=== PATIENT | male | born 1940 | race Caucasian/White ===

== ENCOUNTER 2024-09-26 13:16 | Emergency (ER) | payer MEDICARE, SELFPAY ==
[2024-09-26] VITALS (9 sets, daily range): BP systolic 134–161; BP diastolic 72–102; PULSE 18–88; RESP 14–18; TEMP 36.6–36.7; O2SAT 95–100; BMI 29.3
--- NOTE | 2024-09-26 13:19 | EKG_ITS ---
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1940 Requested By: ED Temporary Provider Order Number: [id number] Reading MD: ED Temporary Provider Measurements Intervals [place] Rate: 75 P: -20 NM: 282 QRS: -57 QRSD: 165 T: -4 QT: 477 QTc: 533 Interpretive Statements SINUS RHYTHM WITH FIRST DEGREE AV BLOCK WITH OCCASIONAL VENTRICULAR PREMATURE COMPLEXES RIGHT BUNDLE BRANCH BLOCK [120+ ms QRS DURATION, UPRIGHT V1, 40+ ms S IN I/aVL/V4/V5/V6] LEFT ANTERIOR FASCICULAR BLOCK [QRS AXIS <= -45, QR IN I, RS IN II] Compared to ECG 09/25/2022 08:53:58 Ventricular premature complex(es) now present /store/S0/[id number]/[id number].pdf
--- NOTE | 2024-09-26 13:42 | XR_ITS ---
Examination: Right elbow 2 views Technique: AP lateral right elbow 2 views Indications: Patient fell today with injury to the elbow, elbow pain Findings: Complete elbow dislocation, distal humeral condyles displaced anteriorly relative to the ulnar notch and radial head Small posterior bony olecranon spur No fracture noted Impression: Complete elbow dislocation
--- NOTE | 2024-09-26 13:42 | XR_ITS ---
Examination: CT brain head without contrast. 2-D sagittal coronal reconstructions Date and time of exam:September 26, 2024 1424 hrs. Indications: Ground-level fall today with injury to the head, head pain CTDI: vol (mGy):58.2 DLP: (mGycm):1107 Technique: Multiple CT axial sections of the brain have been obtained, 5 mm slice thickness. Contrast has not been administered. 2-D sagittal, coronal reconstructions have been obtained Low dose protocols were performed. One or more of the following dose reduction techniques were used; automated exposure control, adjustment of the mA and/or KV according to patient size, use of iterative reconstruction technique. Findings: No significant ventricular enlargement. 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 No mass effect or midline shift Basal cisterns are not remarkable. Fourth ventricle is midline. Cranial vault intact. Impression: Negative for acute hemorrhage, mass effect or midline shift
--- NOTE | 2024-09-26 13:42 | XR_ITS ---
Examination: CT cervical spine without contrast 2-D sagittal reconstructions 2-D coronal reconstructions 3-D reconstructions. Exam date and time:September 26, 2024 1424 hrs. Indications: Ground-level fall today with injury to the neck, neck pain CTDI:vol (mGy) 8.46 DLP: (mGycm) 195 Technique: Multiple 2 mm axial sections of the cervical spine have been obtained. The coronal and sagittal reconstructions have been obtained. 3-D reconstructions have been obtained. Low dose protocols were performed. One or more of the following dose reduction techniques were used; automated exposure control, adjustment of the mA and/or KV according to patient size, use of iterative reconstruction technique. Findings: Axial sections demonstrate intact base of the skull. C1 exhibit satisfactory relationship to the odontoid. No acute cervical vertebral body fracture seen. Alignment posterior spinous processes satisfactory. Advanced disc narrowing C3-C4 Cervical fusion C5-C7 with anatomic alignment Impression: No acute cervical fracture.
--- NOTE | 2024-09-26 13:42 | XR_ITS ---
Examination: AP chest single view Technique one AP portable semiupright chest single view Exam date and time: September 26, 2024 1355 hrs. Comparison April 02, 2023 Indications: Patient fell today with injury to the chest, chest pain Findings: Mild enlargement cardiac contour Median sternotomy wires No pneumothorax Clavicles ribs appear intact Impression: No pneumothorax pulmonary contusion or hemothorax
[2024-09-26] MEDS: KETOROLAC INJ 30 MG/ML VIAL 15 MG IVP (13:52)
[2024-09-26 15:10] LABS: Basophils % (Auto) 0 % (0-2.5); Eosinophils # (Auto) 0.2 Thou/mm3 (0.0-0.5); Eosinophils % (Auto) 1 % (0-10); Hematocrit 37.9 % (41.0-53.0); Hemoglobin 13.4 g/dL (13.5-16.0); Immature Granulocytes % (Auto) 0 % (0-0); Immature Granulocytes Auto 0.03 Thou/mm3 (0.00-0.00); Lymphocytes # (Auto) 1.1 Thou/mm3 (1.0-4.8); Lymphocytes % (Auto) 10 % (10-50); Mean Corpuscular HGB Conc 35.4 g/dl (31.0-37.0); Mean Corpuscular Hemoglobin 29.8 pg (25.0-35.0); Mean Corpuscular Volume 84 fL (80-100); Monocytes # (Auto) 0.8 Thou/mm3 (0.0-0.8); Monocytes % (Auto) 7 % (0-12); Neutrophils % (Auto) 81 % (37-80); Nucleated Red Blood Cell % 0 /100 WBC (0); Platelet Count 186 Thou/mm3 (140-440); RDW Standard Deviation 40.7 fL (35.1-43.9); White Blood Count 11.1 Thou/mm3 (3.8-10.6)
[2024-09-26] MEDS: ONDANSETRON INJ 2 MG/ML INJ 2 ML 4 MG IV (15:13)
[2024-09-26] MEDS: HYDROmorphone INJ 2 MG/ML VIAL 0.5 MG IVP (15:14)
[2024-09-26 15:32] LABS: Collection Type, Urine Catheter; Squamous Epithelial Cell,Urine 0 /hpf (0-5)
[2024-09-26 15:32] LABS: Alanine Aminotransferase 48 U/L (10-49); Albumin, Serum 4.3 gm/dL (3.4-4.8); Albumin/Globulin Ratio 1.8 (1.2-2.2); Alkaline Phosphatase 85 U/L (46-116); Anion Gap 6 (7-16); Aspartate Amino Transferase 63 U/L (0-34); BUN/Creatinine Ratio 19 Ratio (12-20); Bilirubin,Total 1.2 mg/dL (0.3-1.2); Blood Urea Nitrogen 17 mg/dL (9-23); Calcium 11.2 mg/dL (8.3-10.6); Calcium (Corrected) 11.2 mg/dL (8.5-10.1); Carbon Dioxide 26.9 mMol/L (20.0-31.0); Chloride 103 mMol/L (98-107); Creatinine (Component) 0.9 mg/dL (0.6-1.3); Globulin 2.4 gm/dL (2.3-3.5); Glucose 180 mg/dL (74-106); Osmolality,Calculated 278 (275-295); Sodium 136 mMol/L (136-145); Total Protein 6.7 gm/dL (5.7-8.2); eGFR > 60 See Note
[2024-09-26 15:34] LABS: Troponin I 0.049 ng/mL (0.0-0.045)
[2024-09-26 15:37] LABS: Bilirubin,Urine Negative (Negative); Blood,Urine 1+ (Negative); Clarity,Urine Clear (Clear/Hazy); Color,Urine Lt-Yellow (Lt Yel-Yel); Glucose, Urine Negative (Negative); Ketones,Urine Negative (Negative); Leukocyte Esterase,Urine Negative (Negative); Nitrite,Urine Negative (Negative); Protein,Urine Negative (Neg - Trace); RBC,Urine 1 /hpf (0-3); Urobilinogen,Urine Negative mg/dL (0.0-1.0); WBC,Urine < 1 /hpf (0-5)
--- NOTE | 2024-09-26 17:15 | PD.EDADULT ---
ED General RME/HPI General Chief complaint: Fall Stated complaint: POSS SYNCOPAL/FALL Time Seen by Provider: 09/26/24 13:26 Arrival date/time: 09/26/24 13:16 RME / HPI RME / HPI narrative: 83-year-old male with a history of hypertension who was found by his on the couch complaining of having fallen and injuring his right ear and his right elbow. He does not remember the events of the fall, notes that this is his baseline forgetfulness. He has no headache, no neck pain. He does note pain to his right elbow, but only when I move it . At rest he has no pain to the elbow. Related Data Home Medications ?Medication ?Instructions ?Recorded ?Confirmed pantoprazole 40 mg tablet,delayed 40 mg PO QDAY 09/07/18 09/13/23 release duloxetine 60 mg capsule,delayed 60 mg PO BID 09/25/22 09/13/23 release (Cymbalta) celecoxib 200 mg capsule 200 mg PO QDAY 02/11/23 09/13/23 hydrochlorothiazide 25 mg tablet 25 mg PO QDAY 02/11/23 09/13/23 aspirin 81 mg tablet,delayed 81 mg PO QDAY 09/16/23 09/16/23 release loratadine 10 mg tablet 10 mg PO QDAY 09/16/23 09/16/23 Previous Rx's ?Medication ?Instructions ?Recorded acetaminophen 325 mg tablet 650 mg (2 x 325 mg) PO QID PRN 09/26/24 (Tylenol) pain #30 tabs Allergies Allergy/AdvReac Type Severity Reaction Status Date / Time albuterol Allergy Severe Chest Pain Verified 01/21/24 15:13 morphine Allergy Severe Anaphylaxis Verified 01/21/24 15:13 Review of Systems Review of Systems Systems Reviewed: All systems reviewed, normal except as documented ED Exam Narrative Physical exam: GENERAL APPEARANCE: AxOx4, generally well-appearing, no acute distress. HEENT: NC, AT. MMM. EOMI, clear conjunctiva, oropharynx clear, superficial abrasion over the pinna of his right ear NECK: Supple without lymphadenopathy. No stiffness or restricted ROM. HEART: Normal rate and regular rhythm, normal S1/S1, no m/r/g LUNGS: CTAB, moving air well. No crackles or wheezes are heard. ABDOMEN: Soft, nontender, nondistended with good bowel sounds heard. BACK: No midline C/T/L spine pain or deformity, No CVAT, no obvious deformity. EXTREMITIES: Without cyanosis, clubbing or edema. MUSCULOSKELETAL: Right elbow is swollen, deformed, with a prominent olecranon consistent with a posterior dislocation, no crepitus, held in extension with limited flexion and limited supination, no chest tenderness NEUROLOGICAL: Grossly nonfocal. Alert and oriented, moving all 4 extremities. CN not formally tested but appear grossly intact. Observed to ambulate with normal gait. Skin: Warm and dry without any rash. Course Quality Measures none Orders Category Date Time Status Consent [Obtain Written Consent For:] .NOW Care 09/26/24 15:49 Completed EKG (ED ONLY) *Do not use* NOW Care 09/26/24 13:19 Completed NPO NOW Care 09/26/24 14:39 Completed sling [Splint / Immobilizer] STAT Care 09/26/24 18:13 Completed Diet NPO (NOW) Diet 09/26/24 14:[address] cervical spine wo con Stat Exams 09/26/24 13:[address] head/brain wo con Stat Exams 09/26/24 13:42 Completed EKG (ED Only) Stat Exams 09/26/24 13:19 Draft XR chest 1V Stat Exams 09/26/24 13:42 Completed XR elbow comp RT min 3V Stat Exams 09/26/24 13:42 Completed XR elbow comp RT min 3V Stat Exams 09/26/24 17:38 Completed CBC Stat Lab 09/26/24 14:59 Completed CMP [Comprehensive Metabolic Panel] Stat Lab 09/26/24 14:59 Completed Troponin I Stat Lab 09/26/24 14:59 Completed Troponin I Stat Lab 09/26/24 17:06 Completed Urinalysis Stat Lab 09/26/24 15:12 Completed HYDROmorphone INJ [Dilaudid Inj] Med 09/26/24 14:54 Discontinued 0.5 mg IVP X1 ONE Ketamine Inj Med 09/26/24 16:30 Discontinued 50 mg IVP X1 ONE Ketorolac Inj [Toradol Inj] Med 09/26/24 13:43 Discontinued 15 mg IVP X1 ONE Ondansetron Inj [Zofran Inj] Med 09/26/24 14:54 Discontinued 4 mg IV X1 ONE Propofol Inj [Diprivan Inj] Med 09/26/24 16:30 Discontinued 100 mg IV X1 ONE Tet,Diphth,Pertuss(Acell)-Tdap [Boostrix Vacc] Med 09/26/24 18:33 Discontinued 0.5 ml IMI .ONCE ONE Vital Signs Vital signs: Vital Signs Temperature 98.0 F 09/26/24 13:32 Pulse Rate 77 09/26/24 13:32 Respiratory Rate 16 09/26/24 13:32 Blood Pressure 137/80 H 09/26/24 13:32 Pulse Oximetry (%) 95 09/26/24 13:32 Oxygen Delivery Method Room Air 09/26/24 13:32 Procedures -ED Orthopedic Joint Reduction Joint #1: Time Out Performed: Yes Side: Right Joint Reduction Location: elbow Analgesia: procedural sedation Technique used: direct manipulation (flexion-supination) Post-reduction neuro exam: intact Post-reduction vascular: intact Post Reduction X-Ray Results: reduced Splint Applied: Yes Patient Tolerated Procedure: well MDM Patient data External records reviewed:: [facility] previous records Clinical information provided by:: patient Social determinants that could affect healthcare access:: none Patient has the following chronic illnesses:: none How is presenting disease/condition affected by chronic disease/condition?: no chronic disease Evaluation data The following diagnostics were reviewed and interpreted by me:: lab results and radiology exam(s) Lab and/or radiology exams considered but not ordered:: As per narrative Interpretation Summary: As per narrative Medications Medications considered but not ordered:: None Medication administrations:: Medication Administration History Discontinued Medications Diphtheria/Tetanus/Acell Pertussis (Diphth,Pertuss(Acell),Tet Vac 0.5 Ml Vial) 0.5 ml IMi .ONCE ONE Stop: 09/26/24 18:34 Last Admin: 09/26/24 18:54 Dose: 0.5 ml Documented By: DONATO Hydromorphone HCl (Hydromorphone Inj 2 Mg/Ml Vial) 0.5 mg IVP X1 ONE Stop: 09/26/24 14:55 Last Admin: 09/26/24 15:14 Dose: 0.5 mg Documented By: DO Ketamine HCl (Ketamine 50 Mg/Ml Vial 10 Ml) 50 mg IVP X1 ONE Stop: 09/26/24 16:31 Last Admin: 09/26/24 17:29 Dose: 50 mg Documented By: DONATO Comments: MED PUSHED BY DR. DEXTER Ketorolac Tromethamine (Ketorolac Inj 30 Mg/Ml Vial) 15 mg IVP X1 ONE Stop: 09/26/24 13:44 Last Admin: 09/26/24 13:52 Dose: 15 mg Documented By: DB Ondansetron HCl (Ondansetron Inj 2 Mg/Ml Inj 2 Ml) 4 mg IV X1 ONE; Protocol Stop: 09/26/24 14:55 Last Admin: 09/26/24 15:13 Dose: 4 mg Documented By: DO Propofol (Propofol Inj 10 Mg/Ml Vial 20 Ml) 100 mg IV X1 ONE Stop: 09/26/24 16:31 Last Admin: 09/26/24 17:41 Dose: 40 mg Documented By: DONATO Comments: MED PUSH BY DR. DEXTER Above Consultations Consultation(s) initiated? (list below): No Diagnosis Differential Diagnosis ED Complaint MDM: Elbow fracture, elbow dislocation, syncope, anemia, dysrhythmia Most likely diagnosis given after review of the tests above:: Elbow dislocation, elbow fracture Admission Indicated Admission indicated?: not indicated Explain why admission is indicated or not indicated:: As per Admission Request Was there a request for admission?: No Disposition Plan Disposition Plan: Discharge Discharge Attestation Discharge Attestation: The patient and all family members were given an opportunity to ask questions and understood the discharge instructions. Discharge instructions specifically effects, indications for sooner follow up or return to the emergency department, and the expected course of current diagnosis. Patient condition: Stable Medical Decision Making MDM Narrative MDM Narrative: Mr. Boss is a rather strong stoic gentleman who was found down on the ground of which feels he was due to a mechanical fall walking down the stairs. However the patient does not remember events only remembers getting to the sofa exam notes a superficial skin flap to his right ear however his right elbow is deformed with a posterior protrusion of his olecranon is consistent with a elbow dislocation. This was confirmed by initial x-ray. Elbow was reduced via direct manipulation in extreme flexion/supination using procedural sedation without complication. While under sedation still, the elbow appears to be relatively stable, suspicious for significant ligamentous injury. Post procedure x-ray shows adequate reduction however there appears to be likely avulsion fractures that may be related to a ligamentous injury. As result a posterior splint in flexion was applied. He has previous surgeries to his right shoulder and he will. follow-up with them prefers to follow-up with His personal orthopedist. As events were unclear and unwitnessed towards his fall, laboratory screening was sent in case there was a presyncopal or syncopal component around this.'s include basic laboratory tests and troponin which returned within normal limits. I do feel this is probably more of an unwitnessed mechanical fall. Differential Diagnosis Differential Diagnosis: Elbow fracture, elbow dislocation, syncope, anemia, dysrhythmia Lab Data 09/26/24 14:59 09/26/24 14:59 Labs: Lab Results 09/26/24 09/26/24 09/26/24 Range/Units 14:59 15:12 17:06 WBC 11.1 H (3.8-10.6) Thou/mm3 RBC 4.50 (4.50-5.90) Miln/mm3 Hgb 13.4 L (13.5-16.0) g/dL Hct 37.9 L (41.0-53.0) % MCV 84 (80-100) fL MCH 29.8 (25.0-35.0) pg MCHC 35.4 (31.0-37.0) g/dl RDW Std Deviation 40.7 (35.1-43.9) fL Plt Count 186 (140-440) Thou/mm3 Neut % (Auto) 81 H (37-80) % Lymph % (Auto) 10 (10-50) % [place] % (Auto) 7 (0-12) % Eos % (Auto) 1 (0-10) % Baso % (Auto) 0 (0-2.5) % Neut # (Auto) 9.0 H (1.8-7.7) Thou/mm3 Lymph # (Auto) 1.1 (1.0-4.8) Thou/mm3 [place] # (Auto) 0.8 (0.0-0.8) Thou/mm3 Eos # (Auto) 0.2 (0.0-0.5) Thou/mm3 Baso # (Auto) 0.0 (0.0-0.2) Thou/mm3 Immature Gran # (Auto) 0.03 H (0.00-0.00) Thou/mm3 Absolute Nucleated RBC 0.00 (0.00-0.00) Thou/mm3 Immature Gran % 0 (0-0) % Nucleated RBC % 0 (0) /100 WBC Sodium 136 (136-145) mMol/L Potassium 4.0 (3.4-5.1) mMol/L Chloride 103 (98-107) mMol/L Carbon Dioxide 26.9 (20.0-31.0) mMol/L Anion Gap 6 L (7-16) BUN 17 (9-23) mg/dL Creatinine 0.9 (0.6-1.3) mg/dL Estim Creat Clear Calc 85.0 (>60) mL/min eGFR > 60 (60 - ) See Note BUN/Creatinine Ratio 19 (12-20) Ratio Glucose 180 H (74-106) mg/dL Calculated Osmolality 278 (275-295) Calcium 11.2 H (8.3-10.6) mg/dL Corrected Calcium 11.2 H (8.5-10.1) mg/dL Total Bilirubin 1.2 (0.3-1.2) mg/dL AST 63 H (0-34) U/L ALT 48 (10-49) U/L Alkaline Phosphatase 85 (46-116) U/L Troponin I 0.049 H* 0.051 H* (0.0-0.045) ng/mL Total Protein 6.7 (5.7-8.2) gm/dL Albumin 4.3 (3.4-4.8) gm/dL Globulin 2.4 (2.3-3.5) gm/dL Albumin/Globulin Ratio 1.8 (1.2-2.2) Ur Collection Type Catheter Urine Color Lt-Yellow (Lt Yel-Yel) Urine Clarity Clear (Clear/Hazy) Urine pH 6.0 (5.0-7.0) Ur Specific [place] 1.010 (1.001-1.035) Urine Protein Negative (Neg - Trace) Urine Glucose (UA) Negative (Negative) Urine Ketones Negative (Negative) Urine Blood 1+ A (Negative) Urine Nitrite Negative (Negative) Urine Bilirubin Negative (Negative) Urine Urobilinogen (Auto) Negative (0.0-1.0) mg/dL Ur Leukocyte Esterase Negative (Negative) Urine RBC 1 (0-3) /hpf Urine WBC < 1 (0-5) /hpf Ur Squamous Epith Cells 0 (0-5) /hpf Urine Bacteria None (None) Discharge Plan Plan Patient Disposition: HOME (Self Care) Prescriptions/Referrals Prescriptions/Med Rec: New acetaminophen [Tylenol] 325 mg tablet 650 mg PO QID PRN (Reason: pain) Qty: 30 0RF No Action pantoprazole 40 mg Tablet,Delayed Release (Dr/Ec) 40 mg PO QDAY duloxetine [Cymbalta] 60 mg Capsule,Delayed Release(Dr/Ec) 60 mg PO BID celecoxib 200 mg Capsule 200 mg PO QDAY hydrochlorothiazide 25 mg Tablet 25 mg PO QDAY loratadine 10 mg tablet 10 mg PO QDAY Patient Comments: TAKE 1 TABLET BY MOUTH ONCE A DAY FOR ALLERGIES aspirin 81 mg Tablet,Delayed Release (Dr/Ec) 81 mg PO QDAY Referrals: Yoandy Mckay MD [Primary Care Provider] - In 1 week Problem List Clinical Impression: Fall from ground level, Dislocation closed, elbow, Laceration of ear Patient/Caregiver Discharge Instructions Education Materials: ED Elbow Dislocation, ED Fall with Uncertain Cause Additional Instructions: Follow-up with your orthopedist in 1 week for recheck for your elbow dislocation and possible fracture/ligament tear. Follow-up with your primary care doctor in 2 to 3 days for recheck. You can return to the emergency department sooner symptoms worsen or if you notice any new, concerning issues. Print Language: Peruvian Stand Alone Forms: [facility] Award Info., Patient Portal Info Letter
[2024-09-26] MEDS: KETAMINE 50 MG/ML VIAL 10 ML IVP (17:29)
--- NOTE | 2024-09-26 17:38 | XR_ITS ---
Examination: Right elbow 2 views Technique: AP lateral right elbow 2 views Exam date and time: September 26, 2024 7054 hours Indications: Elbow dislocation today post reduction film Findings: Satisfactory reduction of elbow dislocation Bone fragment on the lateral view projects over the coronoid process of the ulna Impression: Recommend CT scan elbow follow-up to confirm chip fracture, likely off the coronoid process of the ulna
[2024-09-26] MEDS: PROPOFOL INJ 10 MG/ML VIAL 20 ML 100 MG IV (17:41)
[2024-09-26 18:09] LABS: Troponin I 0.051 ng/mL (0.0-0.045)
[2024-09-26] MEDS: DIPHTH,PERTUSS(ACELL),TET VAC 0.5 ML VIAL IMi (18:54)
== END 2024-09-26 20:35 | disposition home or self-care (01) ==
PROVIDERS: Emergency Provider Emergency Medicine; PCP Family Medicine
DX: S53.104A Unspecified dislocation of right ulnohumeral joint, initial encounter (principal); I10 Essential (primary) hypertension; W18.30XA Fall on same level, unspecified, initial encounter; S01.311A Laceration without foreign body of right ear, initial encounter
CPT/HCPCS: 24605; 36415; 70450; 71045; 72125; 73080; 80053; 81001; 84484; 85025; 90471; 90715; 96374; 96375; 99285; J1885; J2405; J2704; J3490

== ENCOUNTER 2025-01-08 10:51 | Observation (INO) | payer MEDICARE, SELFPAY ==
[2025-01-08] VITALS (9 sets, daily range): BP systolic 82–143; BP diastolic 61–83; PULSE 81–172; RESP 16–20; TEMP 36.4–36.6; O2SAT 100; BMI 28.5
--- NOTE | 2025-01-08 10:53 | EKG_ITS ---
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1940 Requested By: Juanjose Ortiz Order Number: [id number] Reading MD: Juanjose Ortiz Measurements Intervals [place] Rate: 166 P: [place]: QRS: -52 QRSD: 150 T: 45 QT: 332 QTc: 553 Interpretive Statements UNCERTAIN REGULAR RHYTHM LEFT AXIS DEVIATION [QRS AXIS < -30] RIGHT BUNDLE BRANCH BLOCK [120+ ms QRS DURATION, UPRIGHT V1, 40+ ms S IN I/aVL/V4/V5/V6] ST DEPRESSION, CONSIDER SUBENDOCARDIAL INJURY [0.1+ mV ST DEPRESSION] CRITICAL TEST RESULT Compared to ECG 09/26/2024 13:29:54 Left-axis deviation now present ST (T wave) deviation now present Sinus rhythm no longer present Ventricular premature complex(es) no longer present First degree AV block no longer present Left anterior fascicular block no longer present /store/S0/[id number]
--- NOTE | 2025-01-08 10:53 | EDNOTE_ITS ---
<Statement entered by Lindy Pozo MD - 01/21/25 07:26> I, Lindy Pozo MD, have reviewed the history, exam, and assessment of the patient. I have evaluated the patient independently and agree with the plan of care documented by [ ]. All diagnostic studies were reviewed and discussed. I confirm the diagnosis as documented by the Resident. I was present during the Medical Decision Making for this patient. The patient's plan of care was created between myself and the Resident and consistent with our discussion of the patient's case. ED General RME/HPI General Chief complaint: Arrhythmia/Palpitations Stated complaint: SENT BY BILINGUAL MANAGER DUE TO RAPID HR Time Seen by Provider: 01/08/25 11:07 Arrival date/time: 01/08/25 10:51 RME / HPI RME / HPI narrative: This patient is a 84-year-old male with past medical history of diabetes, duodenal ulcer, hyperlipidemia, iron deficiency anemia, GERD, hypertension, GI bleed in October 2024, PE and DVT was on Eliquis, presented from information strategist, Dr. Bryant's office with chief complaint of racing of heart associated with shortness of breath. EKG was performed in information strategist office which showed SVT heart rate 160s with RBBB. Patient denied any chest pain. He was feeling lightheaded associated with feeling of nausea. He was mildly hypoxic and was placed on oxygen 2 L NC. In the ED, patient had another EKG which showed Supraventricular tachycardia ventricular rate 156 with QTc 553. RBBB. Left axis deviation. After dose of adenosine 6 mg x 1, patient's repeat EKG showed sinus rhythm with first-degree AV block with ventricular rate 89 QTc 483 With RBBB. Patient converted to sinus rhythm after dose of adenosine and felt funny in his chest. Vitals for stable during adenosine administration. Vitals showed blood pressure 114/81, pulse was 90 and afebrile. He was saturating well on room air. Denied any fever chills, dysuria's or any other complaint. Additionally, patient was given a fluid bolus of 1 L x 1. PMH: As above PSH: Shoulder surgery ,back surgery, cataract surgery aortic valve replacement, SH: Denies smoking, drinking alcohol. No history of illicit drug use Allergies: Albuterol and morphine causes anaphylaxis Home medications: Tylenol, aspirin, Cinacalcet, docusate sodium, Dulcolax, duloxetine 60 mg, Eliquis 2.5 which was taken off, hydrochlorothiazide 25 mg, milk of magnesia, nitroglycerin, Zofran,Protonix Diagnosis included community-acquired pneumonia, SVT, electrolyte disturbances, leukocytosis, lactic acidosis, elevated troponin I 12: 38 CBC showed leukocytosis WBC 13.8, hemoglobin 11.5, platelet count 382. Chemistry panel showed sodium 136, potassium 3.0, bicarb 21.2. Kidney function showed BUN 21 and creatinine 1.0. Blood glucose 206. Lactic acid 3.6. Magnesium 1.5. Troponin I 0.071. Lactic acid of 3.6. Patient was given KCl 40 mEq x 1 and 2 g magnesium IV x 1. We repeated the EKG to evaluate heart rhythm and will likely call information strategist afterwards for further updates. Pv Design Engineer recommended that he wants to do flecainide 100 mg x 1 and then 100 mg twice daily upon discharge. 14:32 patient was found to have significant leukocytosis therefore chest x-ray and urinalysis was ordered to evaluate for infection source. Chest x-ray suspicious for right lung pneumonia. Currently waiting on urinalysis. Dr Bryant recommended to admit the patient due to CAP. 15:14 patient was found to have bibasilar pneumonia on chest x-ray. Patient was given dose of Rocephin and azithromycin x 1.Discussed case with hospitalist team regarding admission. Discussed patient's ED course, exam findings, labs and radiology results. Hospitalist team agreed to accept the patient for admission. EKG Findings 11:01 initial EKG showed ventricular rate 166 with left axis deviation QTc 553 with RBBB 11:35 post adenosine. EKG rhythm showed sinus rhythm heart rate 89 with first- degree AV block QTc 483 with RBBB. 13: 29 EKG showed sinus rhythm with first-degree AV block heart rate 90. With RBBB and left axis deviation. QTc 509. complaint: Racing of heart and SOB Onset (ago): hour(s) (2) Location: chest Associated symptoms: shortness of breath Related Data Home Medications ?Medication ?Instructions ?Recorded ?Confirmed pantoprazole 40 mg tablet,delayed 40 mg PO QDAY 09/13/23 release duloxetine 60 mg capsule,delayed 60 mg PO BID 09/25/22 09/13/23 release (Cymbalta) celecoxib 200 mg capsule 200 mg PO QDAY 02/11/2308/26 hydrochlorothiazide 25 mg tablet 25 mg PO QDAY 3 09/13/23 aspirin 81 mg tablet,delayed 81 mg PO QDAY 09/16/23 release loratadine 10 mg tablet 10 mg PO QDAY 09/16/2309/16 Previous Rx's ?Medication ?Instructions ?Recorded acetaminophen 325 mg tablet 650 mg (2 x 325 mg) PO QID PRN 09/26/24 (Tylenol) pain #30 tabs Allergies Allergy/AdvReac Type Severity Reaction Status Date / Time albuterol Allergy Severe Chest Pain Verified 01/21/24 15:13 morphine Allergy Severe Anaphylaxis Verified 01/21/24 15:13 Review of Systems Review of Systems Systems Reviewed: All systems reviewed, normal except as documented Past Medical History Past Medical History NEUROLOGIC: Negative Neurological Disorders or Seizures CARDIAC: Positive Cardiac Disorders, Atrial Fibrillation, Heart Murmur and Valvular Heart Disease; Negative Congestive Heart Failure RESPIRATORY: Positive Chronic Obstructive Pulmonary Disease (COPD); Negative Asthma GASTROINTESTINAL: Positive Gastrointestinal Disorders and Gastroesophageal Reflux Disease GENITOURINARY: Positive Genitourinary Disorders and Benign Prostatic Hyperplasia; Negative Renal Disease REPRODUCTIVE: Positive Testicular Cancer MUSCULOSKELETAL: Positive Musculoskeletal Disorders, Arthritis, Osteoporosis, Carpal Tunnel Syndrome and Fractures ENT: Positive Cataracts ENDOCRINE: Negative Endocrine Disorders, Diabetes Mellitus Type 1 or Diabetes Mellitus Type 2 HEMATOLOGIC: Negative Blood Disorders or Sickle Cell Disease PSYCHO/SOCIAL: Positive Depression OTHER HISTORY: Positive Hospitalization, Autoimmune Disease, Falls (Uses cane and falls frequently), Chemotherapy, Chicken Pox, Measles, Cancer and Testicular Cancer; Negative Blood Transfusions, Blood Transfusion Reaction, Anesthesia Reactions or MRSA Family History FAMILY HISTORY: Negative Family Psychiatric Problems, Family Respiratory Disorders, Family Cardiac Disorders, Family Gastrointestinal Problems, Family Cancer, Family Surgery or Family Anesthesia Reaction Surgical History SURGICAL: Positive Open Heart Surgery, Valve Replacement (Aortic), Coronary Stent, Angiogram, Ear Surgery, Eye Surgery, Abdominal Surgery and Joint Replacement; Negative Cardiac Surgery, Endocrine Surgery, Nephrectomy, Neurologic Surgery or Vasectomy Social History SMOKING STATUS: Never smoker ED Exam Narrative Physical exam: GENERAL APPEARANCE: Elderly male AOx 3 pale in mild distress due to racing of heart. Satting well on 2 L NC. HEENT: NC, AT. MMM. EOMI, clear conjunctiva, oropharynx clear. NECK: Supple without lymphadenopathy. No stiffness or restricted ROM. HEART: Sinus tach with regular rhythm, normal S1/S2, no m/r/g LUNGS: CTAB, moving air well. No crackles or wheezes are heard. ABDOMEN: Soft, nontender, nondistended with good bowel sounds heard. BACK: No CVAT, no obvious deformity. EXTREMITIES: Without cyanosis, clubbing or edema. NEUROLOGICAL: Grossly nonfocal. Alert and oriented, moving all 4 extremities. CN not formally tested but appear grossly intact. Skin: Warm and dry without any rash. Psych: Appropriate mood and affect Course Course Course Narrative: This patient is a 84-year-old male with past medical history of diabetes, duodenal ulcer, hyperlipidemia, iron deficiency anemia, GERD, hypertension, GI bleed in October 2024, cardiac arrest due to PE and DVT was on Eliquis, presented from information strategist, Dr. Bryant's office with chief complaint of racing of heart associated with shortness of breath. EKG was performed in information strategist office which showed SVT heart rate 160s with RBBB. Patient denied any chest pain. He was feeling lightheaded associated with feeling of nausea. He was mildly hypoxic and was placed on oxygen 2 L NC. In the ED, patient had another EKG which showed Supraventricular tachycardia ventricular rate 156 with QTc 553. RBBB. Left axis deviation. After dose of adenosine 6 mg x 1, patient's repeat EKG showed sinus rhythm with first-degree AV block with ventricular rate 89 QTc 483 With RBBB. Patient converted to sinus rhythm after dose of adenosine and felt funny in his chest. Vitals for stable during adenosine administration. Vitals showed blood pressure 114/81, pulse was 90 and afebrile. He was saturating well on room air. Denied any fever chills, dysuria's or any other complaint. Additionally, patient was given a fluid bolus of 1 L x 1. 12: 38 CBC showed leukocytosis WBC 13.8, hemoglobin 11.5, platelet count 382. Chemistry panel showed sodium 136, potassium 3.0, bicarb 21.2. Kidney function showed BUN 21 and creatinine 1.0. Blood glucose 206. Lactic acid 3.6. Magnesium 1.5. Troponin I 0.071. Lactic acid of 3.6. Patient was given KCl 40 mEq x 1 and 2 g magnesium IV x 1. We repeated the EKG to evaluate heart rhythm and will likely call information strategist afterwards for further updates. Pv Design Engineer recommended that he wants to do flecainide 100 mg x 1 and then 100 mg twice daily upon discharge. 14:32 patient was found to have significant leukocytosis therefore chest x-ray and urinalysis was ordered to evaluate for infection source. Chest x-ray suspicious for right lung pneumonia. Currently waiting on urinalysis. Dr Bryant recommended to admit the patient due to CAP. 15:14 patient was found to have bibasilar pneumonia on chest x-ray. Patient was given dose of Rocephin and azithromycin x 1.Discussed case with hospitalist team regarding admission. Discussed patient's ED course, exam findings, labs and radiology results. Hospitalist team agreed to accept the patient for admission. Quality Measures none Orders Category Date Time Status Bedside COVID-19 Antigen Test NOW Care 01/08/25 14:59 Active Bedside Influenza A&B Antigen Test NOW Care 01/08/25 14:59 Active COVID-19 Screening Questionnaire NOW Care 01/08/25 15:09 Active National Recruiter Q4H START 00 Care 01/08/25 11:11 Active Decision to Admit X1 Care 01/08/25 15:09 Active EKG (ED ONLY) *Do not use* NOW Care 01/08/25 10:53 Completed EKG (ED ONLY) *Do not use* NOW Care 01/08/25 11:35 Completed EKG (ED ONLY) *Do not use* NOW Care 01/08/25 12:42 Completed Glucose [Bedside Blood Glucose] NOW Care 01/08/25 10:53 Active Insert IV NOW Care 01/08/25 11:11 Active Miscellaneous Nursing Order NOW Care 01/08/25 14:59 Active Consult to Cardiology Stat Cons 01/08/25 13:05 Ordered CXRP [XR chest 1V portable] Stat Exams 01/08/25 13:55 Completed EKG (ED Only) Stat Exams 01/08/25 10:53 Draft EKG (ED Only) Stat Exams 01/08/25 11:35 Draft EKG (ED Only) Stat Exams 01/08/25 12:42 Draft Blood Culture (Lab) Stat Lab 01/08/25 14:57 Ordered CBC Stat Lab 01/08/25 11:40 Completed CMP [Comprehensive Metabolic Panel] Stat Lab 01/08/25 11:40 Completed Lactate (Lactic Acid) Stat Lab 01/08/25 11:40 Completed Lactic Acid, 3 HR Stat Lab 01/08/25 14:44 Ordered MRSA Nasal Screen Stat Lab 01/08/25 14:59 Ordered Mag [Magnesium] Stat Lab 01/08/25 11:40 Completed Phosphorous Stat Lab 01/08/25 11:40 Completed Troponin I Stat Lab 01/08/25 11:40 Completed Urinalysis Stat Lab 01/08/25 11:43 Ordered Urine Culture Stat Lab 01/08/25 14:57 Ordered Adenosine 6mg Inj [Adenocard Inj] Med 01/08/25 11:00 Discontinued 12 mg IVP X1 ONE Adenosine 6mg Inj [Adenocard Inj] Med 01/08/25 11:00 Discontinued 6 mg IVP X1 ONE Azithromycin Inj [Zithromax Inj] 500 mg Med 01/08/25 14:57 Active Sodium Chloride 0.9% 250 ml [Ns] 250 ml IV X1 KCL 10% Liq UDC 15 ML Med 01/08/25 12:33 Discontinued 40 meq GT X1 ONE KCL 10% Liq UDC 15 ML Med 01/08/25 12:44 Discontinued 40 meq PO X1 ONE Magnesium Sulfate 2 GM Ivpb [Magnesium Sulfate Ivpb] Med 01/08/25 12:33 Discontinued 2 gm in 50 ml IV X1 Sodium Chloride 0.9% 1000 ml [Ns] 1,000 ml Med 01/08/25 11:03 Discontinued IV 999 mls/hr cefTRIAXone/D5w 1gm IV premix [Rocephin/D5w 1gm IV Med 01/08/25 14:57 Active premix] 1 gm in 50 ml IV X1 Vital Signs Vital signs: Vital Signs Pulse Rate 172 H 01/08/25 11:12 Discharge Plan Plan Patient Disposition: Admit Acute Care w/in Hospital Prescriptions/Referrals Prescriptions/Med Rec: No Action pantoprazole 40 mg Tablet,Delayed Release (Dr/Ec) 40 mg PO QDAY duloxetine [Cymbalta] 60 mg Capsule,Delayed Release(Dr/Ec) 60 mg PO BID celecoxib 200 mg Capsule 200 mg PO QDAY hydrochlorothiazide 25 mg Tablet 25 mg PO QDAY loratadine 10 mg tablet 10 mg PO QDAY Patient Comments: TAKE 1 TABLET BY MOUTH ONCE A DAY FOR ALLERGIES aspirin 81 mg Tablet,Delayed Release (Dr/Ec) 81 mg PO QDAY acetaminophen [Tylenol] 325 mg tablet 650 mg PO QID PRN (Reason: pain) Qty: 30 0RF Referrals: Yoandy Mckay MD [Primary Care Provider] - In 1 week Problem List Clinical Impression: SVT (supraventricular tachycardia), Community acquired pneumonia Patient/Caregiver Discharge Instructions Print Language: Belarusian Stand Alone Forms: [employer] Award Info., Patient Portal Info Letter MDM Narrative MDM hospital course (for use when minimal MDM required): This patient is a 84-year-old male with past medical history of diabetes, duodenal ulcer, hyperlipidemia, iron deficiency anemia, GERD, hypertension, GI bleed in October 2024, cardiac arrest due to PE and DVT was on Eliquis, presented from information strategist, Dr. Bryant's office with chief complaint of racing of heart associated with shortness of breath. EKG was performed in information strategist office which showed SVT heart rate 160s with RBBB. Patient denied any chest pain. He was feeling lightheaded associated with feeling of nausea. He was mildly hypoxic and was placed on oxygen 2 L NC. In the ED, patient had another EKG which showed Supraventricular tachycardia ventricular rate 156 with QTc 553. RBBB. Left axis deviation. After dose of adenosine 6 mg x 1, patient's repeat EKG showed sinus rhythm with first-degree AV block with ventricular rate 89 QTc 483 With RBBB. Patient converted to sinus rhythm after dose of adenosine and felt funny in his chest. Vitals for stable during adenosine administration. Vitals showed blood pressure 114/81, pulse was 90 and afebrile. He was saturating well on room air. Denied any fever chills, dysuria's or any other complaint. Additionally, patient was given a fluid bolus of 1 L x 1. 12: 38 CBC showed leukocytosis WBC 13.8, hemoglobin 11.5, platelet count 382. Chemistry panel showed sodium 136, potassium 3.0, bicarb 21.2. Kidney function showed BUN 21 and creatinine 1.0. Blood glucose 206. Lactic acid 3.6. Magnesium 1.5. Troponin I 0.071. Lactic acid of 3.6. Patient was given KCl 40 mEq x 1 and 2 g magnesium IV x 1. We repeated the EKG to evaluate heart rhythm and will likely call information strategist afterwards for further updates. Pv Design Engineer recommended that he wants to do flecainide 100 mg x 1 and then 100 mg twice daily upon discharge. 14:32 patient was found to have significant leukocytosis therefore chest x-ray and urinalysis was ordered to evaluate for infection source. Chest x-ray suspicious for right lung pneumonia. Currently waiting on urinalysis. Dr Bryant recommended to admit the patient due to CAP. 15:14 patient was found to have bibasilar pneumonia on chest x-ray. Patient was given dose of Rocephin and azithromycin x 1.Discussed case with hospitalist team regarding admission. Discussed patient's ED course, exam findings, labs and radiology results. Hospitalist team agreed to accept the patient for admission. EKG Interpretation EKG #1: EKG Interpretation: 11:01 initial EKG showed ventricular rate 166 with left axis deviation QTc 553 with RBBB EKG #2: EKG Interpretation: 11:35 post adenosine. EKG rhythm showed sinus rhythm heart rate 89 with first- degree AV block QTc 483 with RBBB. EKG #3: EKG Interpretation: 13: 29 EKG showed sinus rhythm with first-degree AV block heart rate 90. With RBBB and left axis deviation. QTc 509. Medication Administration(s) Medication Administration History Ceftriaxone Sodium/Dextrose (Rocephin/D5w 1gm Iv Premix) 1 gm in 50 mls @ 100 mls/hr IV X1 ONE Stop: 01/08/25 15:26 Azithromycin 500 mg/ Sodium (Chloride) 250 mls @ 250 mls/hr IV X1 ONE Stop: 01/08/25 15:56 Discontinued Medications Adenosine (Adenosine Inj 3 Mg/Ml Vial) 6 mg IVP X1 ONE Stop: 01/08/25 11:01 Last Admin: 01/08/25 11:32 Dose: 6 mg Documented By: DONATO Adenosine (Adenosine Inj 3 Mg/Ml Vial) 12 mg IVP X1 ONE Stop: 01/08/25 11:01 Last Admin: 01/08/25 11:56 Dose: Not Given Documented By: DONATO Non-Admin Reason: Change of Condition Sodium Chloride (Ns) 1,000 mls @ 999 mls/hr IV .Q1H1M ONE Stop: 01/08/25 12:03 Last Infusion: 01/08/25 12:45 Dose: Infused Documented By: Admin: 01/08/25 11:20 Dose: 999 mls/hr Documented By: DONATO Magnesium Sulfate (Magnesium Sulfate Ivpb) 2 gm in 50 mls @ 25 mls/hr IV X1 ONE Stop: 01/08/25 14:32 Last Admin: 01/08/25 13:06 Dose: 25 mls/hr Documented By: DONATO Potassium Chloride (Potassium Chloride 10% 20 Meq/15 Ml Udc) 40 meq GT X1 ONE Stop: 01/08/25 12:34 Last Admin: 01/08/25 12:45 Dose: Not Given Documented By: DONATO Non-Admin Reason: Cancelled by Provider Potassium Chloride (Potassium Chloride 10% 20 Meq/15 Ml Udc) 40 meq PO X1 ONE Stop: 01/08/25 12:45 Last Admin: 01/08/25 12:54 Dose: 40 meq Documented By: DONATO Diagnosis Differential Diagnosis ED Complaint MDM: CAP, SVT
[2025-01-08] MEDS: SODIUM CHLORIDE 0.9% 1000 ML 1,000 ML 999 ML IV (11:20)
[2025-01-08] MEDS: ADENOSINE INJ 3 MG/ML VIAL 6 MG IVP (11:32)
--- NOTE | 2025-01-08 11:35 | EKG_ITS ---
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1940 Requested By: Lindy Hu Order Number: [id number] Reading MD: Lindy Hu Measurements Intervals [place] Rate: 89 P: -9 [place]: 229 QRS: -61 QRSD: 163 T: 32 QT: 396 QTc: 483 Interpretive Statements SINUS RHYTHM WITH FIRST DEGREE AV BLOCK WITH FREQUENT VENTRICULAR PREMATURE COMPLEXES LEFT AXIS DEVIATION [QRS AXIS < -30] RIGHT BUNDLE BRANCH BLOCK [120+ ms QRS DURATION, UPRIGHT V1, 40+ ms S IN I/aVL/V4/V5/V6] Compared to ECG 01/08/2025 11:01:47 Ventricular premature complex(es) now present First degree AV block now present ST (T wave) deviation no longer present /store/S0/[id number].pdf
[2025-01-08 11:46] LABS: Lactate (Lactic Acid) 3.6 mMol/L (0.4-2.0)
[2025-01-08 11:50] LABS: Basophils # (Auto) 0.1 Thou/mm3 (0.0-0.2); Basophils % (Auto) 0 % (0-2.5); Eosinophils # (Auto) 0.1 Thou/mm3 (0.0-0.5); Eosinophils % (Auto) 0 % (0-10); Hematocrit 34.1 % (41.0-53.0); Hemoglobin 11.5 g/dL (13.5-16.0); Immature Granulocytes % (Auto) 0 % (0-0); Immature Granulocytes Auto 0.04 Thou/mm3 (0.00-0.00); Lymphocytes # (Auto) 3.8 Thou/mm3 (1.0-4.8); Lymphocytes % (Auto) 27 % (10-50); Mean Corpuscular HGB Conc 33.7 g/dl (31.0-37.0); Mean Corpuscular Hemoglobin 26.9 pg (25.0-35.0); Mean Corpuscular Volume 80 fL (80-100); Monocytes # (Auto) 0.9 Thou/mm3 (0.0-0.8); Monocytes % (Auto) 6 % (0-12); Neutrophils % (Auto) 65 % (37-80); Nucleated Red Blood Cell % 0 /100 WBC (0); Platelet Count 382 Thou/mm3 (140-440); Red Blood Count 4.27 Miln/mm3 (4.50-5.90); White Blood Count 13.8 Thou/mm3 (3.8-10.6)
[2025-01-08 12:14] LABS: Alanine Aminotransferase 11 U/L (10-49); Albumin/Globulin Ratio 1.2 (1.2-2.2); Alkaline Phosphatase 101 U/L (46-116); Anion Gap 15 (7-16); Aspartate Amino Transferase 13 U/L (0-34); BUN/Creatinine Ratio 21 Ratio (12-20); Bilirubin,Total 0.8 mg/dL (0.3-1.2); Blood Urea Nitrogen 21 mg/dL (9-23); Carbon Dioxide 21.2 mMol/L (20.0-31.0); Chloride 100 mMol/L (98-107); Estimated Creatinine Clearance 68.2 mL/min (>60); Globulin 3.3 gm/dL (2.3-3.5); Glucose 206 mg/dL (74-106); Magnesium 1.5 mg/dL (1.6-2.6); Osmolality,Calculated 280 (275-295); Phosphorous 2.7 mg/dL (2.4-5.1); Sodium 136 mMol/L (136-145); Total Protein 7.3 gm/dL (5.7-8.2); eGFR > 60 See Note
[2025-01-08 12:15] LABS: Troponin I 0.071 ng/mL (0.0-0.045)
--- NOTE | 2025-01-08 12:42 | EKG_ITS ---
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1940 Requested By: Juanjose Ortiz Order Number: [id number] Reading MD: Juanjose Ortiz Measurements Intervals [place] Rate: 90 P: -4 [place]: 278 QRS: -58 QRSD: 159 T: 51 QT: 416 QTc: 509 Interpretive Statements SINUS RHYTHM WITH FIRST DEGREE AV BLOCK WITH FREQUENT VENTRICULAR PREMATURE COMPLEXES RIGHT BUNDLE BRANCH BLOCK [120+ ms QRS DURATION, UPRIGHT V1, 40+ ms S IN I/aVL/V4/V5/V6] INFERIOR MYOCARDIAL INFARCTION , PROBABLY OLD [40+ ms Q WAVE AND/OR ST/T ABNORMALITY IN II/aVF] Compared to ECG 01/08/2025 11:35:45 Myocardial infarct finding now present Left-axis deviation no longer present /store/S0/[id number].pdf
[2025-01-08] MEDS: POTASSIUM CHLORIDE 10% 20 MEQ/15 ML UDC 40 MEQ PO (12:54)
[2025-01-08] MEDS: Magnesium Sulfate 2 GM Ivpb 2 GM/50 ML BAG IV (13:06)
--- NOTE | 2025-01-08 13:11 | ESCONSULT_ITS ---
<Statement entered by Daniel Bryant MD - 01/08/25 19:27> I personally examined the patient patient facility has known history of aortic valve surgery parathyroid adenoma calcium levels are not much elevated [place] [facility] [place] and DVT in October 2024 in November 2024 with discharge to residential facility and was seen in my office this morning found to have tachycardia supraventricular SVT 60 bpm went to the emergency room converted to sinus rhythm maintaining sinus rhythm so far patient is also going to pneumonia with lactic acidosis and sepsis given fluids and IV antibiotics admitted to hospital close monitor the patient and indicated in will recommend flecainide 100 mg (maintenance as an EKG showed sinus rhythm PACs and PVCs so cardiology agreed patient did had JVD a month ago with pulmonary medicine recommended careful use of low-dose Eliquis 2.5 mg twice daily to prevent DVT and pulmonary embolism. Unable to tolerate higher dose of Eliquis because of gastrointestinal bleeding. Examined the patient evaluated the patient agree with treatment plan as documented by Dr. Harmon PGY 2 we will continue to monitor the patient closely going questions concerns and also coordination of care HPI Data of Consult Primary Care Provider: Yoandy Mckay MD Consult Narrative Reason for consult: SVT History of present illness: Patient is 84 years old male with past medical history of diabetes, hyperlipidemia, iron deficiency anemia, GERD, hypertension, GI bleed in October 2024 due to duodenal ulcer, recent PE and DVT not on Eliquis presented to the ED due to SVT. Patient was evaluated in cardiology office for regular follow-up appointment when he complained of shortness of breath and was found to have tachycardia, EKG was done showing heart rate 160s and regular, concerning for possible SVT and was immediately sent to the emergency room. In the emergency room his heart rate fluctuates between 150 - 190 bpm. Repeat EKG shows suspicion for SVT. At the time of evaluation his blood pressure 96/55 and he was started on IV fluids. Crash cart was placed at the bedside, pads were placed and patient was given 6 mg of adenosine, his rhythm converted to sinus rhythm with multiple PVCs. His condition has improved, blood pressure 114/81. Cardiology was consulted. At this time patient is held in the emergency room for further evaluation. Of note patient was recently admitted to [facility] and was found to have DVT and bilateral PE. He was on heparin drip when he developed GI bleed and was found to have duodenal ulcer. Per GI recommendations he was recommended to hold Eliquis 2.5 mg twice daily for 2 weeks, and if possible increase it to 5 mg twice daily eventually. Echo at that time showed ejection fraction 60 to 65% with moderate LVH and indeterminate diastolic dysfunction. Patient was eventually transferred to [facility] due to parathyroid adenoma found during hospitalization, however surgery was not performed and patient was transferred back [place] [facility] He was discharged to SNF with p.o. Cinacalcet and daily Protonix. Patient was seen and examined at the bedside in the emergency room. He reports shortness of breath which improved significantly after giving him adenosine. Patient was also complaining of nausea and decreased p.o. intake due to that since last admission [place] [facility] [place] 2024. He is on 2 L NC. His heart rate in 80s, on geodetic survey director looks sinus rhythm with multiple PVCs. His labs showed potassium 3.0, lactic acid 3.6, magnesium 1.5, troponin I 0.071. Patient was given 2 g of magnesium and 80 mEq of potassium IV. Patient denies any chest pain or pressure. cc:: cc: Review of Systems Review of Systems Systems Reviewed: All systems reviewed, normal except as documented Exam Vital Signs Temp Pulse Resp BP Pulse Ox O2 Del Method O2 Flow Rate 97.8 F 92 20 114/81 100 Nasal Cannula 2 01/08/25 11:17 01/08/25 13:00 01/08/25 11:17 01/08/25 11:32 01/08/25 11:17 01/08/25 11:17 01/08/25 11:17 Narrative Exam Gen: Well-developed and well-nourished elderly male not in distress. HEENT: NCAT, PERRLA, EOMI, MMM, anicteric conjunctivae. CVS: normal S1 and S2. Irregular due to multiple PVCs. No M/R/G. Resp: CTA B/L. No rhonchi, rales, crackles or wheezing. Abd: soft, non-tender, non-distended. BS+ in all 4 quadrants. MSK: Good ROM in BUE & BLE. No edema or rash. Midline scar over his chest, well-healed. Neuro: CN II-XII grossly intact. Strength 5/5 in BUE & BLE. Alert and oriented x3. Results Labs 01/08/25 11:40 01/08/25 15:06 Labs: Short CBC 01/08/25 Range/Units 11:40 WBC 13.8 H (3.8-10.6) Thou/mm3 Hgb 11.5 L (13.5-16.0) g/dL Hct 34.1 L (41.0-53.0) % Plt Count 382 (140-440) Thou/mm3 BMP 01/08/25 11:40 Sodium 136 Potassium 3.0 L Chloride 100 Carbon Dioxide 21.2 BUN 21 Creatinine 1.0 Glucose 206 H Calcium 9.0 Cardiac Enzymes 01/08/25 Range/Units 11:40 Troponin I 0.071 H* (0.0-0.045) ng/mL Liver Function 01/08/25 Range/Units 11:40 Total Bilirubin 0.8 (0.3-1.2) mg/dL AST 13 (0-34) U/L ALT 11 (10-49) U/L Alkaline Phosphatase 101 (46-116) U/L Albumin 4.0 (3.4-4.8) gm/dL Quality Measures Quality Measures none Advance care planning discussed with:: patient and spouse Medications Home Medications and Allergies Home Medications ?Medication ?Instructions ?Recorded ?Confirmed ?Type pantoprazole 40 mg tablet,delayed 40 mg PO QDAY 09/13/23 History release duloxetine 60 mg capsule,delayed 60 mg PO BID 09/25/22 09/13/23 History release (Cymbalta) celecoxib 200 mg capsule 200 mg PO QDAY 02/11/2308/26 History hydrochlorothiazide 25 mg tablet 25 mg PO QDAY 3 09/13/23 History aspirin 81 mg tablet,delayed 81 mg PO QDAY 09/16/23 History release loratadine 10 mg tablet 10 mg PO QDAY 09/16/2309/16 History Allergies Allergy/AdvReac Type Severity Reaction Status Date / Time albuterol Allergy Severe Chest Pain Verified 01/21/24 15:13 morphine Allergy Severe Anaphylaxis Verified 01/21/24 15:13 Visit Medications Magnesium Sulfate (Magnesium Sulfate Ivpb) 2 gm in 50 mls @ 25 mls/hr IV X1 ONE Stop: 01/08/25 14:32 Last Admin: 01/08/25 13:06 Dose: 25 mls/hr Discontinued Medications Adenosine (Adenosine Inj 3 Mg/Ml Vial) 6 mg IVP X1 ONE Stop: 01/08/25 11:01 Last Admin: 01/08/25 11:32 Dose: 6 mg Adenosine (Adenosine Inj 3 Mg/Ml Vial) 12 mg IVP X1 ONE Stop: 01/08/25 11:01 Last Admin: 01/08/25 11:56 Dose: Not Given Sodium Chloride (Ns) 1,000 mls @ 999 mls/hr IV .Q1H1M ONE Stop: 01/08/25 12:03 Last Infusion: 01/08/25 12:45 Dose: Infused Potassium Chloride (Potassium Chloride 10% 20 Meq/15 Ml Udc) 40 meq GT X1 ONE Stop: 01/08/25 12:34 Last Admin: 01/08/25 12:45 Dose: Not Given Potassium Chloride (Potassium Chloride 10% 20 Meq/15 Ml Udc) 40 meq PO X1 ONE Stop: 01/08/25 12:45 Last Admin: 01/08/25 12:54 Dose: 40 meq Assessment & Plan Plan Patient is 84 years old male with past medical history of diabetes, hyperlipidemia, iron deficiency anemia, GERD, hypertension, GI bleed in October 2024 due to duodenal ulcer, recent PE and DVT not on Eliquis presented to the ED due to SVT. Patient was given 6 mg of adenosine, his rhythm converted to sinus rhythm with multiple PVCs. His condition has improved, blood pressure 114/81. Cardiology was consulted. At this time patient is held in the emergency room for further evaluation. #Episode of symptomatic SVT, resolved. - Patient was evaluated in cardiology office for regular follow-up appointment when he complained of shortness of breath and was found to have heart rate in 160s, EKG was performed showing suspicion for SVT and patient was immediately sent to the emergency room. - In ER EKG showed similar rhythm with heart rate of 158-190 BPM, adenosine 6 mg IV was given patient converted to sinus rhythm with multiple PVCs. Plan: - Replete all electrolytes. - start on Flecainide 100 mg PO BID. #Troponinemia. - Patient's initial labs showed troponin 0.071, patient denies any chest pain or pressure. His shortness of breath has improved significantly after he was converted to sinus rhythm. Likely demand ischemia in setting of SVT. Plan: -Continue trending troponin. #Hx of DVT and bilateral PE. - Patient was diagnosed with DVT and bilateral PE in [facility] in October 2024, was started on heparin drip and developed GI bleed, GI was consulted and patient was found to have duodenal ulcer with bleeding. - Per GI recommendation it was advised to hold Eliquis for 2 weeks and then resume at the dose of 2.5 mg twice daily, and try to increase dose to 5 mg twice daily as tolerated. Plan: - Resume Eliquis 2.5 mg twice daily. 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 #HLD. #HTN. - Echo from 10/2024 showed ejection fraction 60 to 65% with moderate LVH and indeterminate diastolic dysfunction. - Patient does not have BLE edema or crackles on physical exam, he is not taking any medication for CHF. Plan: - Resume home atorvastatin and aspirin. Plan of care discussed with attending Dr. Bryant. Faustino Lovelace MD, PGY 2. Disclaimer: This note was dictated by speech recognition. Minor errors in lamp stack developer may be present due to voice recognition software.
--- NOTE | 2025-01-08 13:55 | XR_ITS ---
Termination: AP chest single view Technique one AP portable upright chest single view Date and time: January 08, 2025 1411 hours Comparison September 26, 2024 INDICATIONS: Coughing today. FINDINGS: Early bibasilar pneumonia Aortic valve replacement Median sternotomy wires Mild vascular congestion IMPRESSION: Early bibasilar pneumonia
[2025-01-08 14:44] LABS: Reflex Lactate? Y
[2025-01-08 15:21] LABS: Lactic Acid, 3 HR 1.8 mMol/L (0.4-2.0)
[2025-01-08] MEDS: cefTRIAXone/D5w 1gm IV premix 1 GM/50 ML BAG IV (15:29)
[2025-01-08] MEDS: AZITHROMYCIN INJ 500 MG in SODIUM CHLORIDE 0.9% 250 ML 250 ML 250 MG IV (15:58)
--- NOTE | 2025-01-08 16:03 | ESHP_ITS ---
<Statement entered by Tai Mcmahon MD - 01/13/25 15:13> I reviewed above note and agree with findings and plans. I have also personally examined the patient with medicine team and went over assessment and plan with medical team including fall intern and resident physician. 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 Apparently the patient went to his regular follow-up appointment with cardiology when he suddenly started feeling short of breath and tachycardia, and was found with heart rate in the 160 bpm, and sent to the ED. In the ER traffic monitor specialist showed heart rate in 150-190 bpm. EKG was done in the ER which showed suspicious for SVT was given 6 mg of adenosine converted into sinus rhythm with PVCs. Patient was also found to be hypotensive in the ER and was given IV fluids. Cardiology was consulted and recommended admission. Patient was admitted as an observation for palpitations, cardiac monitoring and pneumonia. At this time patient denies chest pain, SOB, N/V/D, orthopnea, PND. ED course: ED vitals: BP 82/69, HR 172, RR 20, O2 sat 100% on 2 L nasal cannula ED labs: Leukocytosis, normocytic anemia, hypokalemia, glucose 206, lactic acid 3.6, magnesium 1.5, troponin 0.071, EKG showed SVT, subsequent EKGs show sinus rhythm with PVCs after administration of 6 mg of adenosine, chest x-ray shows early bibasilar pneumonia PMH: As above PSH: Shoulder surgery ,back surgery, cataract surgery aortic valve replacement, SH: Denies smoking, drinking alcohol. No history of illicit drug use Allergies: Albuterol and morphine causes anaphylaxis Home medications: Tylenol, aspirin, Cinacalcet, docusate sodium, Dulcolax, duloxetine 60 mg, Eliquis 2.5 which was taken off, hydrochlorothiazide 25 mg, milk of magnesia, nitroglycerin, Zofran,Protonix Review of Systems Review of Systems Systems Reviewed: All systems reviewed, normal except as documented Narrative Review of Systems: All 12 systems reviewed and normal unless otherwise stated in the HPI Exam Vital Signs Temp Pulse Resp BP Pulse Ox O2 Del Method O2 Flow Rate 97.8 F 90 16 109/61 100 Nasal Cannula 2 01/08/25 14:37 01/08/25 14:37 01/08/25 14:37 01/08/25 14:37 01/08/25 14:37 01/08/25 14:37 01/08/25 14:37 Narrative Exam Physical Exam GENERAL: NAD, AAOx3, very hard of hearing HEENT: Dry mucosa. Eyes open, symmetrical, & clear CARDIO: Heart RRR, no obvious murmurs, thoracotomy scar PULM: No noted coughing/dyspnea CTA B/L, no R/W/R GI: Abdomen soft, nondistended, no pain on palpation. BS+ SKIN/MSK/EXT: No wounds/rashes/edema/amputations, no pain on palpation. Pedal pulses present B/L NEURO: AAOx3, no focal neuro deficits, able to move all 4 extremities Results: Labs 01/08/25 11:40 01/08/25 15:06 Labs: Short CBC 01/08/25 Range/Units 11:40 WBC 13.8 H (3.8-10.6) Thou/mm3 Hgb 11.5 L (13.5-16.0) g/dL Hct 34.1 L (41.0-53.0) % Plt Count 382 (140-440) Thou/mm3 BMP 01/08/25 11:40 Sodium 136 Potassium 3.0 L Chloride 100 Carbon Dioxide 21.2 BUN 21 Creatinine 1.0 Glucose 206 H Calcium 9.0 Cardiac Enzymes 01/08/25 Range/Units 11:40 Troponin I 0.071 H* (0.0-0.045) ng/mL Liver Function 01/08/25 Range/Units 11:40 Total Bilirubin 0.8 (0.3-1.2) mg/dL AST 13 (0-34) U/L ALT 11 (10-49) U/L Alkaline Phosphatase 101 (46-116) U/L Albumin 4.0 (3.4-4.8) gm/dL Quality Measures Quality Measures none Advance care planning discussed with:: patient Medications Home Medications and Allergies Home Medications ?Medication ?Instructions ?Recorded ?Confirmed ?Type pantoprazole 40 mg tablet,delayed 40 mg PO QDAY 09/13/23 History release duloxetine 60 mg capsule,delayed 60 mg PO BID 09/25/22 09/13/23 History release (Cymbalta) celecoxib 200 mg capsule 200 mg PO QDAY 02/11/2308/26 History hydrochlorothiazide 25 mg tablet 25 mg PO QDAY 3 09/13/23 History aspirin 81 mg tablet,delayed 81 mg PO QDAY 09/16/23 History release loratadine 10 mg tablet 10 mg PO QDAY 09/16/2309/16 History Allergies Allergy/AdvReac Type Severity Reaction Status Date / Time albuterol Allergy Severe Chest Pain Verified 01/21/24 15:13 morphine Allergy Severe Anaphylaxis Verified 01/21/24 15:13 Visit Medications Acetaminophen (Acetaminophen 325 Mg Tablet) 650 mg PO Q6H PRN PRN Reason: Fever >99.5 Stop: 02/07/25 15:43 Acetaminophen (Acetaminophen 325 Mg Tablet) 1,000 mg PO Q6H PRN PRN Reason: PAIN SCALE 1-3 (mild Stop: 02/07/25 15:43 Apixaban (Apixaban 2.5 Mg Tablet) 2.5 mg PO BID [facility] Stop: 01/29/25 20:59 Dextrose (Dextrose 50%-Water Inj 50 Ml Syringe) 25 ml IV Q15MIN PRN PRN Reason: BG 50-70 responsive npo pt Stop: 02/07/25 15:53 Dextrose (Dextrose 50%-Water Inj 50 Ml Syringe) 50 ml IV Q15MIN PRN PRN Reason: BG <50 OR BG <70 & pt unresponsive Stop: 02/07/25 15:53 Docusate Sodium (Docusate Sod 100 Mg Capsule) 100 mg PO QDAY [facility]; Protocol Stop: 02/08/25 08:59 Doxycycline Hyclate (Doxycycline 100 Mg Tablet) 100 mg PO BID [facility] Stop: 01/15/25 20:59 Glucagon (Glucagon Inj 1 Mg Vial) 1 mg IM Q15MIN PRN PRN Reason: BG <70, and no IV access Ceftriaxone Sodium/Dextrose (Rocephin/D5w 1gm Iv Premix) 1 gm in 50 mls @ 100 mls/hr IV QDAY [facility] Stop: 01/16/25 08:59 Insulin Human Lispro (Insulin Lispro (Admelog) 1 Unit/0.01 Ml Unit) 0 unit SC AC [facility]; Protocol Stop: 02/07/25 16:59 Ondansetron HCl (Ondansetron Inj 2 Mg/Ml Inj 2 Ml) 4 mg IV Q6H PRN; Protocol PRN Reason: NAUSEA OR VOMITING Stop: 02/07/25 15:43 Sennosides (Senna Tablet) 1 tab PO QDAY [facility]; Protocol Stop: 02/08/25 08:59 Discontinued Medications Adenosine (Adenosine Inj 3 Mg/Ml Vial) 6 mg IVP X1 ONE Stop: 01/08/25 11:01 Last Admin: 01/08/25 11:32 Dose: 6 mg Adenosine (Adenosine Inj 3 Mg/Ml Vial) 12 mg IVP X1 ONE Stop: 01/08/25 11:01 Last Admin: 01/08/25 11:56 Dose: Not Given Sodium Chloride (Ns) 1,000 mls @ 999 mls/hr IV .Q1H1M ONE Stop: 01/08/25 12:03 Last Infusion: 01/08/25 12:45 Dose: Infused Magnesium Sulfate (Magnesium Sulfate Ivpb) 2 gm in 50 mls @ 25 mls/hr IV X1 ONE Stop: 01/08/25 14:32 Last Infusion: 01/08/25 15:31 Dose: Infused Ceftriaxone Sodium/Dextrose (Rocephin/D5w 1gm Iv Premix) 1 gm in 50 mls @ 100 mls/hr IV X1 ONE Stop: 01/08/25 15:26 Last Infusion: 01/08/25 16:01 Dose: Infused Azithromycin 500 mg/ Sodium (Chloride) 250 mls @ 250 mls/hr IV X1 ONE Stop: 01/08/25 15:56 Last Admin: 01/08/25 15:58 Dose: 250 mls/hr Potassium Chloride (Potassium Chloride 10% 20 Meq/15 Ml Udc) 40 meq GT X1 ONE Stop: 01/08/25 12:34 Last Admin: 01/08/25 12:45 Dose: Not Given Potassium Chloride (Potassium Chloride 10% 20 Meq/15 Ml Udc) 40 meq PO X1 ONE Stop: 01/08/25 12:45 Last Admin: 01/08/25 12:54 Dose: 40 meq Assessment & Plan Plan 84-year-old male with past medical history of diabetes, hyperlipidemia, iron deficiency anemia, GERD, hypertension, duodenal ulcer with GI bleed recent PE and DVT presented to the ED due to supraventricular tachycardia. Patient was admitted as an observation for palpitations, cardiac monitoring and pneumonia. #Supraventricular tachycardia?resolved #Elevated troponins #History of DVT/PE Patient came in from manager of environmental services office where he was short of breath and tachycardic was found with SVT with rate in 150s?190s In the ED he was given 6 mg of adenosine and converted to sinus rhythm with premature ventricular contractions ? on flecainide 100mg BID ? Monitor telemetry ? Cardiology consulted, appreciate recommendations ? Keep K> 4 and Mg> 2 ? Follow-up troponins ? Low-sodium diet ? Eliquis 2.5 mg twice daily #Community-acquired pneumonia #Lactic acidosis?resolved Found on chest x-ray Patient does have tachycardia, leukocytosis, with lactic acidosis on presentation Curb 65: 3, based on BUN more than 19, systolic blood pressure less than 90, age more than 65 ? On ceftriaxone and doxycycline (01/08? ? Follow-up blood cultures ? Follow-up UA and urine cultures #Diabetes mellitus type 2 Last A1c: 7.4 (12/02/2023) ? SSI ? Hypoglycemia protocol in place #HFpEF 60-65% #Hypertension #Hyperlipidemia On presentation patient was hypotensive Will resume antihypertensive therapy when necessary ? Resume atorvastatin ? Resume aspirin Health Maintenance: Disposition: Telemetry, Obs, cardiac monitoring, antibiotics for pneumonia Fluids: None Feeding: Low-sodium diet Thrombo prophylaxis: Eliquis Gastric Ulcer prophylaxis: Pantoprazole CODE STATUS: Full code Case discussed with my attending Dr. Lisandro Arzola MD PGY-1 Disclaimer: Despite multiple revisions, due to the dictation software being used, the document bellow may not be free of grammatical errors including phonetic/typographic errors. However, this does not deter from our commitment to providing health care in the patient's best interest in mind.
[2025-01-08 17:03] LABS: Anion Gap 10 (7-16); BUN/Creatinine Ratio 21 Ratio (12-20); Blood Urea Nitrogen 19 mg/dL (9-23); Carbon Dioxide 22.7 mMol/L (20.0-31.0); Chloride 103 mMol/L (98-107); Creatinine (Component) 0.9 mg/dL (0.6-1.3); Estimated Creatinine Clearance 75.8 mL/min (>60); Glucose 162 mg/dL (74-106); Magnesium 1.9 mg/dL (1.6-2.6); Osmolality,Calculated 278 (275-295); Potassium 3.4 mMol/L (3.4-5.1); Sodium 136 mMol/L (136-145); eGFR > 60 See Note
[2025-01-08 17:08] LABS: Troponin I 0.063 ng/mL (0.0-0.045)
[2025-01-08] MEDS: ATORVASTATIN CALCIUM 20 MG TABLET PO (22:08)
[2025-01-08] MEDS: APIXABAN 2.5 MG TABLET PO (22:08)
[2025-01-08] MEDS: FLECAINIDE ACET 50 MG TABLET 100 MG PO (22:09)
[2025-01-08] MEDS: DOXYCYCLINE 100 MG TABLET PO (22:09)
--- NOTE | 2025-01-08 22:12 | PC.NURSE ---
Report given to florence RN, Deangelo
[2025-01-09] VITALS: BP 114/65; PULSE 85; PULSE 96; RESP 17; TEMP 36.6; O2SAT 96
[2025-01-09 04:00] VITALS: BP 135/77; PULSE 81; PULSE 95; RESP 12; TEMP 36.7; O2SAT 99
[2025-01-09 06:00] VITALS: BMI 28.5
[2025-01-09 06:44] LABS: Glucose Estimated Average 123 mg/dL (80-131); Hemoglobin A1C 5.9 % Hgb (4.8-6.0)
[2025-01-09 06:51] LABS: Basophils # (Auto) 0.1 Thou/mm3 (0.0-0.2); Basophils % (Auto) 1 % (0-2.5); Eosinophils # (Auto) 0.2 Thou/mm3 (0.0-0.5); Eosinophils % (Auto) 3 % (0-10); Hematocrit 32.6 % (41.0-53.0); Hemoglobin 10.8 g/dL (13.5-16.0); Immature Granulocytes % (Auto) 1 % (0-0); Immature Granulocytes Auto 0.03 Thou/mm3 (0.00-0.00); Lymphocytes # (Auto) 2.3 Thou/mm3 (1.0-4.8); Lymphocytes % (Auto) 37 % (10-50); Mean Corpuscular HGB Conc 33.1 g/dl (31.0-37.0); Mean Corpuscular Hemoglobin 27.5 pg (25.0-35.0); Mean Corpuscular Volume 83 fL (80-100); Monocytes # (Auto) 0.5 Thou/mm3 (0.0-0.8); Monocytes % (Auto) 8 % (0-12); Neutrophils # (Auto) 3.2 Thou/mm3 (1.8-7.7); Neutrophils % (Auto) 51 % (37-80); Nucleated Red Blood Cell % 0 /100 WBC (0); Platelet Count 296 Thou/mm3 (140-440); Red Blood Count 3.93 Miln/mm3 (4.50-5.90); White Blood Count 6.3 Thou/mm3 (3.8-10.6)
[2025-01-09 07:29] LABS: Alanine Aminotransferase 9 U/L (10-49); Albumin, Serum 3.7 gm/dL (3.4-4.8); Albumin/Globulin Ratio 1.2 (1.2-2.2); Alkaline Phosphatase 88 U/L (46-116); Anion Gap 10 (7-16); Aspartate Amino Transferase 13 U/L (0-34); BUN/Creatinine Ratio 23 Ratio (12-20); Bilirubin,Total 0.6 mg/dL (0.3-1.2); Blood Urea Nitrogen 16 mg/dL (9-23); Calcium 9.1 mg/dL (8.3-10.6); Calcium (Corrected) 9.3 mg/dL (8.5-10.1); Carbon Dioxide 24.1 mMol/L (20.0-31.0); Chloride 103 mMol/L (98-107); Creatinine (Component) 0.7 mg/dL (0.6-1.3); Estimated Creatinine Clearance 97.4 mL/min (>60); Globulin 3.2 gm/dL (2.3-3.5); Glucose 144 mg/dL (74-106); Magnesium 1.7 mg/dL (1.6-2.6); Osmolality,Calculated 278 (275-295); Phosphorous 2.5 mg/dL (2.4-5.1); Potassium 3.4 mMol/L (3.4-5.1); Sodium 137 mMol/L (136-145); Total Protein 6.9 gm/dL (5.7-8.2); eGFR > 60 See Note
[2025-01-09 08:00] VITALS: BP 120/70; PULSE 76; PULSE 80; RESP 16; TEMP 35.9; O2SAT 98
[2025-01-09] MEDS: POTASSIUM CHLORIDE 20 mEq TABCR 40 MEQ PO (08:11)
[2025-01-09] MEDS: Magnesium Sulfate 4 GM Ivpb 4 GM/50 ML BAG IV (08:12)
[2025-01-09 09:35] VITALS: BP 120/70; PULSE 76
[2025-01-09] MEDS: DOCUSATE SOD 100 MG CAPSULE PO (09:35)
[2025-01-09] MEDS: SENNA TABLET 1 TAB PO (09:35)
[2025-01-09] MEDS: DOXYCYCLINE 100 MG TABLET PO (09:35)
[2025-01-09] MEDS: ASPIRIN EC 81 MG TABEC PO (09:35)
[2025-01-09] MEDS: APIXABAN 2.5 MG TABLET PO (09:35)
[2025-01-09] MEDS: cefTRIAXone/D5w 1gm IV premix 1 GM/50 ML BAG IV (09:35)
[2025-01-09] MEDS: FLECAINIDE ACET 50 MG TABLET 100 MG PO ×2 (09:35→11:14)
--- NOTE | 2025-01-09 10:36 | ESDS_ITS ---
<Statement entered by Tai Mcmahon MD - 01/14/25 16:22> I reviewed above note and agree with findings and plans. I have also personally examined the patient with medicine team and went over assessment and plan with medical team including internet technology manager and resident physician. Planned Discharge Date 01/09/25 DS: Providers Provider Date of admission: 01/08/25 15:44 Primary care physician: Yoandy Mckay MD Admitting Provider: Tai Mcmahon MD Attending Provider on Admission: Tai Mcmahon MD Consults: 01/08/25 13:05 Consult to Cardiology Stat Comment: Consulting Provider: Daniel Bryant Attending Provider on DC: Juan Pablo Jackson MD Discharging Provider: Juan Pablo Jackson MD DS: Diagnosis Problem List Completed Was Problem List Reviewed/Reconciled?: Yes Hospital Course Hospital Course Hospital course: 84-year-old male with past medical history of hyperlipidemia, iron deficiency anemia, GERD, hypertension, duodenal ulcer, history of DVT with PE who 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 In the ED, patient was hypotensive 82/69, tachycardic heart rate 172, respiratory rate 20 but saturating 100 on 2 L nasal cannula. Pertinent lab findings included lactic acidosis 3.6, leukocytosis, mild elevation in troponin 0.071 which have peaked and downtrended, EKG which showed SVT and chest x-ray which showed bibasilar pneumonia. Consecutive EKGs were sinus rhythm with PVCs after administration of 6 mg of adenosine. Cardiology was consulted and recommendation was to start the patient on flecainide 100 mg p.o. twice daily. Patient was started on IV antibiotics with blood and urine cultures ordered. Patient symptomatically improved and cardiology recommended discharge on new medication with goal for follow-up. Patient will be discharged to [facility] with the following strict instructions. Please take Augmentin 500-125mg by mouth twice a day for 6 days Please take Flecainide 100 mg by mouth twice a day for SVT (abnormal heart rhythm) Follow-up with Dr. Bryant 1 week after discharge Follow-up with your PCP within 1 week after discharge If your symptoms worsen or if you develop new chest pain, shortness of breath, dizziness, palpitations or bleeding - please come back to the ED immediately. 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% #Hypertension #Hyperlipidemia Juan Pablo Jackson, PGY-1 Status at Discharge Overall status at discharge: patient is progressing back to baseline Time Spent with Patient Time attestation: Total time spent providing and/or coordinating discharge services: 45 minutes Time spent: Greater than 30 minutes Exam Vital Signs Temp Pulse Resp BP Pulse Ox O2 Del Method O2 Flow Rate 96.7 F L 76 16 120/70 98 Nasal Cannula 1 01/09/25 08:00 01/09/25 09:35 01/09/25 08:00 01/09/25 09:35 01/09/25 08:00 01/09/25 08:00 01/09/25 08:00 Narrative Exam Gen: Well-developed and well-nourished elderly male not in distress. HEENT: NCAT, PERRLA, EOMI, MMM, anicteric conjunctivae. CVS: normal S1 and S2. RRR. No M/R/G. Resp: CTA B/L. No rhonchi, rales, crackles or wheezing. Abd: soft, non-tender, non-distended. BS+ in all 4 quadrants. MSK: Good ROM in BUE & BLE. No edema or rash. Midline scar over his chest, well-healed. Neuro: CN II-XII grossly intact. Strength 5/5 in BUE & BLE. Alert and oriented x3. Discharge Plan Problem List Was Problem List Reviewed/Reconciled?: Yes Plan Patient Disposition: Xfer Skilled Nsg Fac (SNF) Disposition Comment: [facility] Patient condition on transfer: Stable Care Plan Goals: Please take Augmentin 500-125mg by mouth twice a day for 6 days Please take Flecainide 100 mg by mouth twice a day for SVT (abnormal heart rhythm) Follow-up with Dr. Bryant 1 week after discharge Follow-up with your PCP within 1 week after discharge If your symptoms worsen or if you develop new chest pain, shortness of breath, dizziness, palpitations or bleeding - please come back to the ED immediately. Prescriptions/Referrals Prescriptions/Med Rec: New flecainide 100 mg tablet 100 mg PO Q12H 30 Days Qty: 60 0RF amoxicillin-pot clavulanate 500-125 mg tablet 1 tab PO BID 6 Days Qty: 12 0RF Continued pantoprazole 40 mg Tablet,Delayed Release (Dr/Ec) 40 mg PO QDAY duloxetine [Cymbalta] 60 mg Capsule,Delayed Release(Dr/Ec) 60 mg PO BID cinacalcet 30 mg tablet 30 mg PO QDAY docusate sodium 100 mg capsule 100 mg PO QDAY bisacodyl [Dulcolax (bisacodyl)] 10 mg suppository 10 mg IA QDAY PRN (Reason: constipation) Eliquis 2.5 mg tablet 2.5 mg PO BID magnesium hydroxide [Milk of Magnesia] 400 mg/5 mL suspension 400 mg PO TID PRN (Reason: No BM for 3 days) celecoxib 200 mg Capsule 200 mg PO QDAY hydrochlorothiazide 25 mg Tablet 25 mg PO QDAY loratadine 10 mg tablet 10 mg PO QDAY Patient Comments: TAKE 1 TABLET BY MOUTH ONCE A DAY FOR ALLERGIES aspirin 81 mg Tablet,Delayed Release (Dr/Ec) 81 mg PO QDAY acetaminophen [Tylenol] 325 mg tablet 650 mg PO QID PRN (Reason: pain) Qty: 30 0RF Referrals: Daniel Bryant MD [Physician] - Yoandy Mckay MD [Primary Care Provider] - Patient/Caregiver Discharge Instructions Education Materials: Supraventricular Tachycardia, Your Heart's Electrical System Print Language: Arabic Stand Alone Forms: [facility] Award Info., Patient Portal Info Letter Discharge Order Discharge Orders: Discharge (Routine); Ordered 01/09/25 Ordered By: Juan Pablo Jackson Quality Discharge Quality Measures VTE prophylaxis
[2025-01-09 11:14] VITALS: BP 118/66; PULSE 200
--- NOTE | 2025-01-09 11:23 | ESPR_ITS ---
<Statement entered by Daniel Bryant MD - 01/12/25 08:23> I personally evaluated examined the patient appears to be clinically stable not have any chest pain shortness of breath admitted to hospital initially with SVT converted to sinus rhythm now treated for infection doing much better okay to discharge home as long as patient feels quite well remains in sinus rhythm discharged home on flecainide I will see him for follow-up in a week in my office evaluated patient with Dr. Harmon PGY2 agree with the treatment plan recommendations Documentation for date of: 01/09/25 Subjective Subjective Interval history: Patient was seen and examined at the bedside. No acute overnight events. Patient was started on flecainide 100 mg twice daily yesterday by primary team. Today he had 4 seconds run of tachycardia which appeared to be SVT. Primary team is planning to discharge patient today. Continue home medications and flecainide 100 mg twice daily and follow-up with cardiology within 1 week. Exam Vital Signs Temp Pulse Resp BP Pulse Ox O2 Del Method O2 Flow Rate 96.7 F L 200 H 16 118/66 98 Nasal Cannula 1 01/09/25 08:00 01/09/25 11:14 01/09/25 08:00 01/09/25 11:14 01/09/25 08:00 01/09/25 08:00 01/09/25 08:00 Narrative Exam Gen: Well-developed and well-nourished elderly male not in distress. HEENT: NCAT, PERRLA, EOMI, MMM, anicteric conjunctivae. CVS: normal S1 and S2. RRR. No M/R/G. Resp: CTA B/L. No rhonchi, rales, crackles or wheezing. Abd: soft, non-tender, non-distended. BS+ in all 4 quadrants. MSK: Good ROM in BUE & BLE. No edema or rash. Midline scar over his chest, well-healed. Neuro: CN II-XII grossly intact. Strength 5/5 in BUE & BLE. Alert and oriented x3. Objective Labs 01/09/25 05:51 01/09/25 05:51 Labs: Laboratory Results - last 24 hr 01/08/25 01/08/25 01/09/25 11:40 15:06 05:51 WBC 13.8 H 6.3 D RBC 4.27 L 3.93 L Hgb 11.5 L 10.8 L Hct 34.1 L 32.6 L MCV 80 83 MCH 26.9 27.5 MCHC 33.7 33.1 RDW Std Deviation 47.0 H 50.0 H Plt Count 382 296 D Neut % (Auto) 65 51 Lymph % (Auto) 27 37 [place] % (Auto) 6 8 Eos % (Auto) 0 3 Baso % (Auto) 0 1 Neut # (Auto) 9.0 H 3.2 Lymph # (Auto) 3.8 2.3 [place] # (Auto) 0.9 H 0.5 Eos # (Auto) 0.1 0.2 Baso # (Auto) 0.1 0.1 Immature Gran # (Auto) 0.04 H 0.03 H Absolute Nucleated RBC 0.00 0.00 Immature Gran % 0 1 H Nucleated RBC % 0 0 Sodium 136 136 137 Potassium 3.0 L 3.4 3.4 Chloride 100 103 103 Carbon Dioxide 21.2 22.7 24.1 Anion Gap 15 10 10 BUN 21 19 16 Creatinine 1.0 0.9 0.7 Estim Creat Clear Calc 68.2 75.8 97.4 eGFR > 60 > 60 > 60 BUN/Creatinine Ratio 21 H 21 H 23 H Glucose 206 H [address] Glu mg/dL 123 Hemoglobin A1c 5.9 Calculated Osmolality 280 278 278 Lactic Acid 3.6 H 1.8 Calcium 9.0 9.0 9.1 Corrected Calcium 9.0 9.3 Phosphorus 2.7 2.5 Magnesium 1.5 L 1.9 1.7 Total Bilirubin 0.8 0.6 AST 13 13 ALT 11 9 L Alkaline Phosphatase 101 88 Troponin I 0.071 H* 0.063 H* Total Protein 7.3 6.9 Albumin 4.0 3.7 Globulin 3.3 3.2 Albumin/Globulin Ratio 1.2 1.2 Quality Measures Quality Measures none Advance care planning discussed with:: patient Assessment & Plan Assessment Current Active Medications: Generic Name Dose Route Start Last Admin Trade Name Freq PRN Reason Stop Dose Admin Acetaminophen 650 mg 01/08/25 15:44 Acetaminophen 325 Mg Tablet PO 02/07/25 15:43 Q6H PRN Fever >99.5 Acetaminophen 1,000 mg 01/09/25 06:54 Acetaminophen 500 Mg Tablet PO 02/07/25 15:43 Q6H PRN PAIN SCALE 1-3 (mild Apixaban 2.5 mg 01/08/25 21:00 01/09/25 09:35 Apixaban 2.5 Mg Tablet PO 01/29/25 20:59 2.5 mg BID OLESYA Administration Aspirin 81 mg 01/09/25 09:00 01/09/25 09:35 Aspirin Ec 81 Mg Tabec PO 02/08/25 08:59 81 mg QDAY OLESYA Administration Atorvastatin Calcium 20 mg 01/08/25 21:00 01/08/25 22:08 Atorvastatin Calcium 20 Mg Tablet PO 02/07/25 20:59 20 mg HS OLESYA Administration Dextrose 25 ml 01/08/25 15:54 Dextrose 50%-Water Inj 50 Ml Syringe IV 02/07/25 15:53 Q15MIN PRN BG 50-70 responsive npo pt Dextrose 50 ml 01/08/25 15:54 Dextrose 50%-Water Inj 50 Ml Syringe IV 02/07/25 15:53 Q15MIN PRN BG <50 OR BG <70 & pt unresponsive Docusate Sodium 100 mg 01/09/25 09:00 01/09/25 09:35 Docusate Sod 100 Mg Capsule PO 02/08/25 08:59 100 mg QDAY OLESYA Administration Protocol Doxycycline Hyclate 100 mg 01/08/25 21:00 01/09/25 09:35 Doxycycline 100 Mg Tablet PO 01/15/25 20:59 100 mg BID OLESYA Administration Flecainide Acetate 100 mg 01/08/25 21:00 01/09/25 09:35 Flecainide Acet 50 Mg Tablet PO 02/07/25 20:59 100 mg BID OLESYA Administration Glucagon 1 mg 01/08/25 15:54 Glucagon Inj 1 Mg Vial IM Q15MIN PRN BG <70, and no IV access Ceftriaxone Sodium/Dextrose 1 gm in 50 mls @ 100 mls/hr 01/09/25 09:00 01/09/25 09:35 Rocephin/D5w 1gm Iv Premix IV 01/16/25 08:59 100 mls/hr QDAY OLESYA Administration Magnesium Sulfate 4 gm in 50 mls @ 12.5 mls/hr 01/09/25 07:32 01/09/25 08:12 Magnesium Sulfate Ivpb IV 01/09/25 11:31 12.5 mls/hr X1 ONE Administration Insulin Human Lispro 0 unit 01/08/25 17:00 01/09/25 07:55 Insulin Lispro (Admelog) 1 Unit/0.01 Ml Unit SC 02/07/25 16:59 Not Given [facility] Protocol Ondansetron HCl 4 mg 01/08/25 15:44 Ondansetron Inj 2 Mg/Ml Inj 2 Ml IV 02/07/25 15:43 Q6H PRN NAUSEA OR VOMITING Protocol Sennosides 1 tab 01/09/25 09:00 01/09/25 09:35 Senna Tablet PO 02/08/25 08:59 1 tab QDAY OLESYA Administration Protocol Plan Patient is 84 years old male with past medical history of diabetes, hyperlipidemia, iron deficiency anemia, GERD, hypertension, GI bleed in October 2024 due to duodenal ulcer, recent PE and DVT not on Eliquis presented to the ED due to SVT. Patient was given 6 mg of adenosine, his rhythm converted to sinus rhythm with multiple PVCs. His condition has improved, blood pressure 114/81. Cardiology was consulted. At this time patient is held in the emergency room for further evaluation. #Episode of symptomatic SVT, resolved. - Patient was evaluated in cardiology office for regular follow-up appointment when he complained of shortness of breath and was found to have heart rate in 160s, EKG was performed showing suspicion for SVT and patient was immediately sent to the emergency room. - In ER EKG showed similar rhythm with heart rate of 158-190 BPM, adenosine 6 mg IV was given patient converted to sinus rhythm with multiple PVCs. Plan: - continue on Flecainide 100 mg PO BID. #Troponinemia, resolved. - Patient's initial labs showed troponin 0.071, patient denies any chest pain or pressure. Troponin eventually down trended to 0.063. His shortness of breath has improved significantly after he was converted to sinus rhythm. Likely demand ischemia in setting of SVT. #Hx of DVT and bilateral PE. - Patient was diagnosed with DVT and bilateral PE in [facility] in October 2024, was started on heparin drip and developed GI bleed, GI was consulted and patient was found to have duodenal ulcer with bleeding. - Per GI recommendation it was advised to hold Eliquis for 2 weeks and then resume at the dose of 2.5 mg twice daily, and try to increase dose to 5 mg twice daily as tolerated. Plan: - Resume Eliquis 2.5 mg twice daily. 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 #HLD. #HTN. - Echo from 10/2024 showed ejection fraction 60 to 65% with moderate LVH and indeterminate diastolic dysfunction. - Patient does not have BLE edema or crackles on physical exam, he is not taking any medication for CHF. Plan: - Resume home atorvastatin and aspirin. Plan of care discussed with attending Dr. Bryant. Faustino Lovelace MD, PGY 2. Disclaimer: This note was dictated by speech recognition. Minor errors in end user consultant may be present due to voice recognition software.
[2025-01-09 12:00] VITALS: BP 116/69; PULSE 90; RESP 18; TEMP 36; O2SAT 97
[2025-01-09] MEDS: INSULIN LISPRO (AdmeLOG) 1 UNIT/0.01 ML UNIT SC (12:00)
--- NOTE | 2025-01-09 12:18 | PC.SS ---
[facility]VIN obtained for transport. Patient's spouse informed cost of transport to be covered this one time. SS contacted [facility], transportation ETA 1400 via ambulance. Patient's spouse Bailey informed of ETA 1400. YAMILEX Verdin, DONELL Pineda, and Dr. Jackson informed of ETA pickup. SS informed patient is ready for discharge by Dr. Yip. SS confirmed with [facility] if patient can return to facility. [facility] stated patient can be accepted today.
== END 2025-01-09 14:00 | disposition skilled nursing facility (03) ==
LOC: SERX 14:36 → S2NX 01-09 09:20 → SERHOLD 01-09 23:01 → S2NX 01-09 23:02
PROVIDERS: Student in an Organized Health Care Education/Training Program; Admitting Provider Internal Medicine; Emergency Provider Emergency Medicine; PCP Family Medicine; Visit Provider Internal Medicine
DX: J18.9 Pneumonia, unspecified organism (principal); I47.10 Supraventricular tachycardia, unspecified; J44.0 Chronic obstructive pulmonary disease with (acute) lower respiratory infection; I49.3 Ventricular premature depolarization; I48.91 Unspecified atrial fibrillation; I47.20 Ventricular tachycardia, unspecified; I45.10 Unspecified right bundle-branch block; I44.0 Atrioventricular block, first degree; I11.0 Hypertensive heart disease with heart failure; F32.A Depression, unspecified; E87.6 Hypokalemia; E87.20 Acidosis, unspecified; E78.5 Hyperlipidemia, unspecified; E11.9 Type 2 diabetes mellitus without complications; D64.9 Anemia, unspecified; K59.00 Constipation, unspecified; M19.90 Unspecified osteoarthritis, unspecified site; M81.0 Age-related osteoporosis without current pathological fracture; R29.6 Repeated falls; Z87.19 Personal history of other diseases of the digestive system; Z01.810 Encounter for preprocedural cardiovascular examination; D35.1 Benign neoplasm of parathyroid gland; Z95.2 Presence of prosthetic heart valve; Z86.718 Personal history of other venous thrombosis and embolism; Z86.711 Personal history of pulmonary embolism; Z85.47 Personal history of malignant neoplasm of testis; Z82.49 Family history of ischemic heart disease and other diseases of the circulatory system; I50.30 Unspecified diastolic (congestive) heart failure
CPT/HCPCS: 36415; 71045; 80048; 80053; 81001; 83036; 83605; 83735; 84100; 84484; 85025; 87040; 87081; 87086; 87400; 87811; 93005; 96365; 96366; 96375; 99285; G0378; J0153; J0456; J0696; J1815; J3475; J7030; J7050; A9270

== ENCOUNTER 2025-01-21 08:20 | Emergency (ER) | payer MEDICARE, SELFPAY ==
[2025-01-21] VITALS (11 sets, daily range): BP systolic 96–153; BP diastolic 66–84; PULSE 64–114; RESP 16–95; TEMP 36.4–36.9; O2SAT 95–100; BMI 23.7
--- NOTE | 2025-01-21 08:37 | EKG_ITS ---
[facility] Test Date: 2025-01-21 Pat Name: SUSANNE BERNARDO Department: Room: - Gender: Male [employer]: : 1940 Requested By: Lindy Hu Order Number: [id number] Reading MD: Lindy Hu Measurements Intervals [place] Rate: 84 P: 2 VT: 303 QRS: -86 QRSD: 214 T: 61 QT: 546 QTc: 649 Interpretive Statements SINUS RHYTHM WITH FIRST DEGREE AV BLOCK WITH OCCASIONAL VENTRICULAR PREMATURE COMPLEXES POSSIBLE LEFT ATRIAL ENLARGEMENT [-0.1mV P-WAVE IN V1/V2] LEFT AXIS DEVIATION [QRS AXIS < -30] RIGHT BUNDLE BRANCH BLOCK [120+ ms QRS DURATION, UPRIGHT V1, 40+ ms S IN I/aVL/V4/V5/V6] ST DEPRESSION, CONSIDER SUBENDOCARDIAL INJURY [0.1+ mV ST DEPRESSION] PROLONGED QT INTERVAL CRITICAL TEST RESULT Compared to ECG 01/08/2025 13:29:46 Left-axis deviation now present ST (T wave) deviation now present Prolonged QT interval now present Myocardial infarct finding no longer present /store/S0/[id number].pdf
--- NOTE | 2025-01-21 08:45 | EKG_ITS ---
[facility] Test Date: 2025-01-21 Pat Name: SUSANNE BERNARDO Department: Room: - Gender: Male [employer]: : 1940 Requested By: Vinay Williamson Order Number: [id number] Reading MD: Vinay Williamson Measurements Intervals [place] Rate: 74 P: PA: QRS: -38 QRSD: 95 T: 98 QT: 273 QTc: 304 Interpretive Statements SUPRAVENTRICULAR RHYTHM LEFT AXIS DEVIATION [QRS AXIS < -30] LOW QRS VOLTAGE IN PRECORDIAL LEADS [QRS DEFLECTION < 1.0 mV IN CHEST LEADS] POSSIBLE RIGHT VENTRICULAR CONDUCTION DELAY [RSR (QR) IN V1/V2] ANTERIOR MYOCARDIAL INFARCTION , PROBABLY RECENT [40+ ms Q WAVE AND/OR ST/T ABNORMALITY IN V3/V4] MARKED ST ELEVATION, CONSIDER SEPTAL INJURY [MARKED ST ELEVATION W/O NORMALLY INFLECTED T-WAVE IN V1/V2] ACUTE AK Compared to ECG 01/21/2025 08:40:02 Supraventricular rhythm now present Low QRS voltage now present Myocardial infarct finding now present Sinus rhythm no longer present Ventricular premature complex(es) no longer present First degree AV block no longer present Right bundle-branch block no longer present Prolonged QT interval no longer present ST (T wave) deviation still present /store/S0/[id number]
[2025-01-21 08:56] LABS: Collection Type, Urine Clean Catch; RBC,Urine 0 /hpf (0-3); Squamous Epithelial Cell,Urine 0 /hpf (0-5)
[2025-01-21 09:11] LABS: Bilirubin,Urine Negative (Negative); Blood,Urine Negative (Negative); Clarity,Urine Clear (Clear/Hazy); Color,Urine Yellow (Lt Yel-Yel); Glucose, Urine Negative (Negative); Ketones,Urine Negative (Negative); Leukocyte Esterase,Urine Negative (Negative); Nitrite,Urine Negative (Negative); Protein,Urine Trace (Neg - Trace); Specific Gravity,Urine 1.016 (1.001-1.035); Urobilinogen,Urine Negative mg/dL (0.0-1.0); WBC,Urine < 1 /hpf (0-5)
[2025-01-21 09:29] LABS: Basophils % (Auto) 0 % (0-2.5); Eosinophils % (Auto) 0 % (0-10); Hematocrit 42.7 % (41.0-53.0); Hemoglobin 14.2 g/dL (13.5-16.0); Immature Granulocytes % (Auto) 0 % (0-0); Immature Granulocytes Auto 0.03 Thou/mm3 (0.00-0.00); Lymphocytes # (Auto) 3.5 Thou/mm3 (1.0-4.8); Lymphocytes % (Auto) 38 % (10-50); Mean Corpuscular HGB Conc 33.3 g/dl (31.0-37.0); Mean Corpuscular Hemoglobin 26.7 pg (25.0-35.0); Mean Corpuscular Volume 80 fL (80-100); Monocytes # (Auto) 0.7 Thou/mm3 (0.0-0.8); Monocytes % (Auto) 7 % (0-12); Neutrophils # (Auto) 4.8 Thou/mm3 (1.8-7.7); Neutrophils % (Auto) 53 % (37-80); Nucleated Red Blood Cell % 0 /100 WBC (0); Platelet Count 297 Thou/mm3 (140-440); RDW Standard Deviation 46.6 fL (35.1-43.9); Red Blood Count 5.32 Miln/mm3 (4.50-5.90)
[2025-01-21] MEDS: SODIUM CHLORIDE 0.9% 1000 ML 1,000 ML 999 ML IV ×2 (09:34→11:47)
[2025-01-21 09:48] LABS: Alanine Aminotransferase 12 U/L (10-49); Albumin, Serum 4.4 gm/dL (3.4-4.8); Albumin/Globulin Ratio 1.5 (1.2-2.2); Alkaline Phosphatase 88 U/L (46-116); Anion Gap 13 (7-16); Aspartate Amino Transferase 17 U/L (0-34); BUN/Creatinine Ratio 20 Ratio (12-20); Blood Urea Nitrogen 18 mg/dL (9-23); Calcium 11.8 mg/dL (8.3-10.6); Calcium (Corrected) 11.8 mg/dL (8.5-10.1); Carbon Dioxide 24.6 mMol/L (20.0-31.0); Chloride 97 mMol/L (98-107); Creatinine (Component) 0.9 mg/dL (0.6-1.3); Estimated Creatinine Clearance 75.6 mL/min (>60); Glucose 187 mg/dL (74-106); Osmolality,Calculated 277 (275-295); Potassium 3.2 mMol/L (3.4-5.1); Sodium 135 mMol/L (136-145); Total Protein 7.4 gm/dL (5.7-8.2); eGFR > 60 See Note
[2025-01-21 09:49] LABS: INR 1.1 (0.9-1.3); Partial Thromboplastin Time 25.3 Seconds (22.0-36.0); Prothrombin Time 12.2 Seconds (9.0-12.2)
[2025-01-21 09:50] LABS: Troponin I 0.048 ng/mL (0.0-0.045)
--- NOTE | 2025-01-21 10:00 | PD.EDWEAK ---
ED Weakness RME/HPI General Chief complaint: Weakness Stated complaint: WEAKNESS Time Seen by Provider: 01/21/25 08:29 Arrival date/time: 01/21/25 08:20 RME / HPI RME / HPI Narrative: The patient is a 84-year-old male with significant past medical history of Hypertension, duodenal ulcer, hyperlipidemia, TREMAYNE, history of DVT with PE with nonambulatory status presented to ED with chief complaint of being found diaphoretic at his SNF. After the patient was brought into the hospital, he reported doing well. He admitted mild dizziness, but denied any headache, chest pain, SOB, abdominal pain, any changes in bowel or bladder habit, leg swelling, fever or chills, nausea or vomiting. Related Data Home Medications ?Medication ?Instructions ?Recorded ?Confirmed pantoprazole 40 mg tablet,delayed 40 mg PO QDAY 09/07/18 01/09/25 release duloxetine 60 mg capsule,delayed 60 mg PO BID 09/25/22 01/09/25 release (Cymbalta) celecoxib 200 mg capsule 200 mg PO QDAY 02/11/23 01/09/25 hydrochlorothiazide 25 mg tablet 25 mg PO QDAY 02/11/23 01/09/25 aspirin 81 mg tablet,delayed 81 mg PO QDAY 09/16/23 01/09/25 release loratadine 10 mg tablet 10 mg PO QDAY 09/16/23 01/09/25 apixaban 2.5 mg tablet (Eliquis) 2.5 mg PO BID 01/09/25 01/09/25 bisacodyl 10 mg rectal suppository 10 mg IN QDAY PRN constipation 01/09/25 01/09/25 (Dulcolax (bisacodyl)) cinacalcet 30 mg tablet 30 mg PO QDAY 01/09/25 01/09/25 docusate sodium 100 mg capsule 100 mg PO QDAY 01/09/25 01/09/25 magnesium hydroxide 400 mg/5 mL 400 mg PO TID PRN No BM for 3 days 01/09/25 01/09/25 oral suspension (Milk of Magnesia) Previous Rx's ?Medication ?Instructions ?Recorded acetaminophen 325 mg tablet 650 mg (2 x 325 mg) PO QID PRN 09/26/24 (Tylenol) pain #30 tabs flecainide 100 mg tablet 100 mg PO Q12H 1 month #60 tabs 01/09/25 Allergies Allergy/AdvReac Type Severity Reaction Status Date / Time albuterol Allergy Severe Chest Pain Verified 01/21/24 15:13 morphine Allergy Severe Anaphylaxis Verified 01/21/24 15:13 Review of Systems Review of Systems Systems Reviewed: All systems reviewed, normal except as documented (Above) Past Medical History Past Medical History NEUROLOGIC: Negative Neurological Disorders or Seizures CARDIAC: Positive Cardiac Disorders, Atrial Fibrillation, Heart Murmur and Valvular Heart Disease; Negative Congestive Heart Failure RESPIRATORY: Positive Chronic Obstructive Pulmonary Disease (COPD); Negative Asthma GASTROINTESTINAL: Positive Gastrointestinal Disorders and Gastroesophageal Reflux Disease GENITOURINARY: Positive Genitourinary Disorders and Benign Prostatic Hyperplasia; Negative Renal Disease REPRODUCTIVE: Positive Testicular Cancer MUSCULOSKELETAL: Positive Musculoskeletal Disorders, Arthritis, Osteoporosis, Carpal Tunnel Syndrome and Fractures ENT: Positive Cataracts ENDOCRINE: Negative Endocrine Disorders, Diabetes Mellitus Type 1 or Diabetes Mellitus Type 2 HEMATOLOGIC: Negative Blood Disorders or Sickle Cell Disease PSYCHO/SOCIAL: Positive Depression OTHER HISTORY: Positive Hospitalization, Autoimmune Disease, Falls (Uses cane and falls frequently), Chemotherapy, Chicken Pox, Measles, Cancer and Testicular Cancer; Negative Blood Transfusions, Blood Transfusion Reaction, Anesthesia Reactions or MRSA Family History FAMILY HISTORY: Negative Family Psychiatric Problems, Family Respiratory Disorders, Family Cardiac Disorders, Family Gastrointestinal Problems, Family Cancer, Family Surgery or Family Anesthesia Reaction Surgical History SURGICAL: Positive Open Heart Surgery, Valve Replacement (Aortic), Coronary Stent, Angiogram, Ear Surgery, Eye Surgery, Abdominal Surgery and Joint Replacement; Negative Cardiac Surgery, Endocrine Surgery, Nephrectomy, Neurologic Surgery or Vasectomy Social History SMOKING STATUS: Never smoker ED Exam Narrative Physical exam: General: No acute distress, Alert and Oriented x 3 HEENT: Mildly dry mucous membranes, oropharynx clear Neck: Supple, No masses, No JVD CVS: S1S2 Regular rate and rhythm, No murmurs, rubs or gallops Lungs: Clear to auscultation with no accessory use, no wheeze no rhonchi Abd: Soft, NT/ND, +BS, no organomegaly Neuro: Cranial nerve grossly intact, no focal or gross motor or sensory deficit. Ext: No edema, warm and well perfused Skin: No rash Psych: Appropriate mood and affect Course Quality Measures none Orders Category Date Time Status Care Companion STAT Care 01/21/25 08:45 Active EKG (ED ONLY) *Do not use* NOW Care 01/21/25 08:37 Completed EKG (ED ONLY) *Do not use* NOW Care 01/21/25 08:45 Completed EKG (ED ONLY) *Do not use* NOW Care 01/21/25 15:20 Completed EKG (ED ONLY) *Do not use* NOW Care 01/21/25 16:13 Completed Fingerstick [Bedside Blood Glucose] X1 Care 01/21/25 08:47 Active Insert IV STAT Care 01/21/25 08:45 Active Orthostatic Vitals STAT Care 01/21/25 08:46 Active EKG (ED Only) Stat Exams 01/21/25 08:37 Draft EKG (ED Only) Stat Exams 01/21/25 08:45 Draft EKG (ED Only) Stat Exams 01/21/25 15:20 Draft EKG (ED Only) Stat Exams 01/21/25 16:13 Ordered XR chest 1V portable Stat Exams 01/21/25 10:01 Completed CBC Stat Lab 01/21/25 09:05 Completed CMP [Comprehensive Metabolic Panel] Stat Lab 01/21/25 12:59 Completed Comprehensive Metabolic Panel Stat Lab 01/21/25 09:05 Completed Magnesium Stat Lab 01/21/25 12:59 Completed Partial Thromboplastin Time Stat Lab 01/21/25 09:05 Completed Prothrombin Time with INR Stat Lab 01/21/25 09:05 Completed Troponin I Stat Lab 01/21/25 09:05 Completed Troponin I Stat Lab 01/21/25 12:59 Completed Troponin I Stat Lab 01/21/25 16:06 Completed Urinalysis Stat Lab 01/21/25 08:53 Completed KCL 10% Liq UDC 15 ML Med 01/21/25 10:42 Discontinued 40 meq PO X1 ONE KCL 10% Liq UDC 15 ML Med 01/21/25 13:02 Discontinued 40 meq PO X1 ONE Magnesium Sulfate 4 GM Ivpb [Magnesium Sulfate Ivpb] Med 01/21/25 12:59 Discontinued 4 gm in 50 ml IV X1 Sodium Chloride 0.9% 1000 ml [Ns] 1,000 ml Med 01/21/25 09:02 Discontinued IV 999 mls/hr Sodium Chloride 0.9% 1000 ml [Ns] 1,000 ml Med 01/21/25 10:42 Discontinued IV 999 mls/hr Oxygen Delivery NOW RT 01/21/25 08:45 Active Vital Signs Vital signs: Vital Signs Temperature 98.4 F 05/29/25 08:44 Pulse Rate 84 01/21/25 08:44 Respiratory Rate 18 01/21/25 08:44 Blood Pressure 96/66 01/21/25 08:44 Pulse Oximetry (%) 100 01/21/25 08:44 Oxygen Delivery Method Room Air 01/21/25 08:44 Weakness MDM Narrative MDM Narrative:: The patient is a 84-year-old male with significant past medical history of Hypertension, duodenal ulcer, hyperlipidemia, TREMAYNE, history of DVT with PE with nonambulatory status presented to ED with chief complaint of being found diaphoretic at his SNF. After the patient was brought into the hospital, he reported doing well. He admitted mild dizziness, but denied any headache, chest pain, SOB, abdominal pain, any changes in bowel or bladder habit, leg swelling, fever or chills, nausea or vomiting. His ED vitals were blood pressure 96/66, pulse 84, RR 18, temperature 98.4, saturating 100% on room air. Fingerstick blood sugar was 184, CBC fairly stable, coagulation panel stable, chemistry panel revealed sodium 135, potassium 3.2, chloride 97, blood sugar 187, corrected calcium 11.8, troponin 0.048, UA negative for UTI. EKG revealed Sinus rhythm with first-degree AV block with occasional ventricular premature complexes, left axis deviation present, QTc 649. He received 4 g magnesium sulfate, KCl 40 mEq p.o. x 2, and 2 L of bolus IV normal saline was given. Repeat EKG revealed QTC of 298. The patient was planned to DC back to SNF. The patient's management plan was discussed with my attending physician MD Vinay Young MD, PGY2 Patient data External records reviewed:: [facility] previous records Clinical information provided by:: patient and family Social determinants that could affect healthcare access:: none Patient has the following chronic illnesses:: See above How is presenting disease/condition affected by chronic disease/condition?: caused by Evaluation data The following diagnostics were reviewed and interpreted by me:: lab results, radiology exam(s) and EKG tracing(s) Lab and/or radiology exams considered but not ordered:: None Interpretation Summary: See above Medications / Prescriptions Medications or Prescriptions considered but not ordered:: None Medication administrations:: Medication Administration History Discontinued Medications Sodium Chloride (Ns) 1,000 mls @ 999 mls/hr IV .Q1H1M ONE Stop: 01/21/25 10:02 Last Infusion: 01/21/25 11:46 Dose: Infused Documented By: Admin: 01/21/25 09:34 Dose: 999 mls/hr Documented By: NÉSTOR Sodium Chloride (Ns) 1,000 mls @ 999 mls/hr IV .Q1H1M ONE Stop: 01/21/25 11:42 Last Infusion: 01/21/25 14:02 Dose: Infused Documented By: Admin: 01/21/25 11:47 Dose: 999 mls/hr Documented By: NÉSTOR Magnesium Sulfate (Magnesium Sulfate Ivpb) 4 gm in 50 mls @ 12.5 mls/hr IV X1 ONE Stop: 01/21/25 16:58 Last Admin: 01/21/25 14:14 Dose: 12.5 mls/hr Documented By: NÉSTOR Potassium Chloride (Potassium Chloride 10% 20 Meq/15 Ml Udc) 40 meq PO X1 ONE Stop: 01/21/25 10:43 Last Admin: 01/21/25 11:20 Dose: 40 meq Documented By: BRITTANY Potassium Chloride (Potassium Chloride 10% 20 Meq/15 Ml Udc) 40 meq PO X1 ONE Stop: 01/21/25 13:03 Last Admin: 01/21/25 14:14 Dose: 40 meq Documented By: NÉSTOR See above Consultations Consultation(s) initiated? (list below): No Diagnosis Weakness Differential Diagnosis: anemia, hypoglycemia and dehydration Most likely diagnosis given after review of the tests above:: Dehydration Admission Indicated Admission indicated?: not indicated Admission Request Was there a request for admission?: No Disposition Plan Disposition Plan: Discharge Discharge Attestation Discharge Attestation: The patient and all family members were given an opportunity to ask questions and understood the discharge instructions. Discharge instructions specifically effects, indications for sooner follow up or return to the emergency department, and the expected course of current diagnosis. Patient condition: Stable Discharge Plan Plan Patient Disposition: Xfer Skilled Nsg Fac (SNF) Prescriptions/Referrals Prescriptions/Med Rec: No Action pantoprazole 40 mg Tablet,Delayed Release (Dr/Ec) 40 mg PO QDAY duloxetine [Cymbalta] 60 mg Capsule,Delayed Release(Dr/Ec) 60 mg PO BID cinacalcet 30 mg tablet 30 mg PO QDAY docusate sodium 100 mg capsule 100 mg PO QDAY bisacodyl [Dulcolax (bisacodyl)] 10 mg suppository 10 mg IN QDAY PRN (Reason: constipation) Eliquis 2.5 mg tablet 2.5 mg PO BID magnesium hydroxide [Milk of Magnesia] 400 mg/5 mL suspension 400 mg PO TID PRN (Reason: No BM for 3 days) flecainide 100 mg tablet 100 mg PO Q12H 30 Days Qty: 60 0RF celecoxib 200 mg Capsule 200 mg PO QDAY hydrochlorothiazide 25 mg Tablet 25 mg PO QDAY loratadine 10 mg tablet 10 mg PO QDAY Patient Comments: TAKE 1 TABLET BY MOUTH ONCE A DAY FOR ALLERGIES aspirin 81 mg Tablet,Delayed Release (Dr/Ec) 81 mg PO QDAY acetaminophen [Tylenol] 325 mg tablet 650 mg PO QID PRN (Reason: pain) Qty: 30 0RF Referrals: Yoandy Mckay MD [Primary Care Provider] - In 1 week Problem List Clinical Impression: Dehydration, Hypercalcemia Patient/Caregiver Discharge Instructions Education Materials: Dehydration, Hypercalcemia Dc Additional Instructions: The patient was discharged with the following recommendations: Please follow-up with your PCP within 1 week of discharge, and request for CMP, electrolytes and EKG test -Recommended to drink at least 2 to 3 L of fluid daily. Continue taking all other medicines as prescribed -Recommended to return back to emergency department if your symptoms persists or worsens Print Language: Scottish Stand Alone Forms: [facility] Award Info., Patient Portal Info Letter
--- NOTE | 2025-01-21 10:01 | XR_ITS ---
Examination: AP chest single view TECHNIQUE: AP portable upright chest single view Date and time: January 21, 2025 1008 hours Comparison January 08, 2025 INDICATIONS: Coughing this week. FINDINGS: Minimal bibasilar pneumonia Aortic valve replacement Mild prominence left ventricle Mild vascular congestion Prominent osteopenia IMPRESSION: Minimal bibasilar pneumonia
[2025-01-21] MEDS: POTASSIUM CHLORIDE 10% 20 MEQ/15 ML UDC 40 MEQ PO ×2 (11:20→14:14)
[2025-01-21 13:37] LABS: Alanine Aminotransferase 12 U/L (10-49); Albumin, Serum 3.9 gm/dL (3.4-4.8); Albumin/Globulin Ratio 1.6 (1.2-2.2); Alkaline Phosphatase 78 U/L (46-116); Anion Gap 10 (7-16); Aspartate Amino Transferase 18 U/L (0-34); BUN/Creatinine Ratio 24 Ratio (12-20); Bilirubin,Total 0.8 mg/dL (0.3-1.2); Blood Urea Nitrogen 19 mg/dL (9-23); Calcium 10.5 mg/dL (8.3-10.6); Calcium (Corrected) 10.6 mg/dL (8.5-10.1); Carbon Dioxide 25.2 mMol/L (20.0-31.0); Chloride 103 mMol/L (98-107); Creatinine (Component) 0.8 mg/dL (0.6-1.3); Estimated Creatinine Clearance 85.1 mL/min (>60); Globulin 2.4 gm/dL (2.3-3.5); Glucose 157 mg/dL (74-106); Magnesium 1.6 mg/dL (1.6-2.6); Osmolality,Calculated 280 (275-295); Potassium 3.5 mMol/L (3.4-5.1); Sodium 138 mMol/L (136-145); Total Protein 6.3 gm/dL (5.7-8.2); eGFR > 60 See Note
[2025-01-21 13:38] LABS: Troponin I 0.053 ng/mL (0.0-0.045)
[2025-01-21] MEDS: Magnesium Sulfate 4 GM Ivpb 4 GM/50 ML BAG IV (14:14)
--- NOTE | 2025-01-21 14:37 | PC.NURSE ---
IN TO ASSESS PT. PT WITH C/O LOW WBC. REPORTS 7OLB WEIGHT LOSS WITHIN THE LAST YEAR WITH 10LB WEIGHT LOSS WITHIN THE LAST WEEK. PT WITHOUT FURTHER C/O AT THIS TIME. V/S ASSESSED AND STABLE. CALL LIGHT PLACED WITHIN REACH. PENDING PROVIDERS ORDERS.
--- NOTE | 2025-01-21 15:20 | EKG_ITS ---
[facility] Test Date: 2025-01-21 Pat Name: SUSANNE BERNARDO Department: Room: - Gender: Male Can Maker: : 1940 Requested By: Vinay Williamson Order Number: [id number] Reading MD: Vinay Williamson Measurements Intervals [place] Rate: 73 P: AR: QRS: -87 QRSD: 131 T: 120 QT: 271 QTc: 300 Interpretive Statements UNCERTAIN REGULAR RHYTHM INTRAVENTRICULAR CONDUCTION DELAY [130+ ms QRS DURATION] ST DEPRESSION, CONSIDER SUBENDOCARDIAL INJURY [0.1+ mV ST DEPRESSION] Compared to ECG 01/21/2025 15:31:29 Intraventricular conduction delay now present Supraventricular rhythm no longer present Left-axis deviation no longer present Myocardial infarct finding no longer present ST (T wave) deviation still present /store/S0/[id number].pdf
--- NOTE | 2025-01-21 16:13 | EKG_ITS ---
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: : 1940 Requested By: Vinay Williamson Order Number: [id number] Reading MD: Vinay Williamson Measurements Intervals [place] Rate: 76 P: MO: QRS: -85 QRSD: 135 T: 91 QT: 331 QTc: 373 Interpretive Statements UNCERTAIN IRREGULAR RHYTHM RIGHT BUNDLE BRANCH BLOCK [120+ ms QRS DURATION, UPRIGHT V1, 40+ ms S IN I/aVL/V4/V5/V6] LEFT ANTERIOR FASCICULAR BLOCK [QRS AXIS <= -45, QR IN I, RS IN II] MARKED ST ELEVATION, CONSIDER ANTERIOR INJURY [MARKED ST ELEVATION W/O NORMALLY INFLECTED T-WAVE IN V2-V5] ACUTE PA Compared to ECG 01/21/2025 15:31:29 Right bundle-branch block now present Left anterior fascicular block now present Supraventricular rhythm no longer present Left-axis deviation no longer present ST (T wave) deviation still present Myocardial infarct finding still present /store/S0/[id number].pdf
[2025-01-21 16:50] LABS: Troponin I 0.053 ng/mL (0.0-0.045)
--- NOTE | 2025-01-21 18:15 | PC.CC ---
ASWRosie was consulted by dental sales representative and bedside RN Lou for transportation back to [facility] for the patient. Patient does not have insurance coverage for transportation and , Bailey cannot pay for the expense for transportation as she expressed financial burden. ASW, made contact with Polo at [facility] who reports they are unable to provide transportation this evening. ASW obtained an ESVIN from [facility], Dee Dee Castillo for [facility] for transportation to [facility] for the patient. ASW to arrange transportation with [facility].
--- NOTE | 2025-01-21 20:27 | PC.NURSE ---
PATIEBNT HAS BEEN DISCHARGED, WAITING FOR EMS PU @ [id number]
== END 2025-01-21 21:35 | disposition skilled nursing facility (03) ==
PROVIDERS: Student in an Organized Health Care Education/Training Program; Emergency Provider Emergency Medicine; PCP Family Medicine
DX: E86.0 Dehydration (principal); E83.52 Hypercalcemia; I10 Essential (primary) hypertension; E78.5 Hyperlipidemia, unspecified
CPT/HCPCS: 36415; 71045; 80053; 81001; 83735; 84484; 85025; 85610; 85730; 93005; 96361; 96365; 96366; 99284; J3475; J7030; A9270